=== PATIENT | male | born 1940 | race American Indian/Alaskan Native ===

== ENCOUNTER 2017-04-14 12:30 | Emergency (ER) | payer MEDICARE ==
[2017-04-14 13:31] LABS: Basophils % (Auto) 0.3 % (0.0-1.8); Eosinophils % (Auto) 0.2 % (0.0-4.3); Hematocrit 36.2 % (35.5-45.6); Hemoglobin 11.9 gm/dl (11.8-15.2); Mean Corpuscular HGB Conc 33 % (32-34); Mean Corpuscular Hemoglobin 30 pg (28-32); Mean Corpuscular Volume 92 fl (84-94); Platelet Count 213 K/mm3 (140-440); Red Blood Count 3.93 M/mm3 (3.65-5.03); Red Cell Distribution Width 14.1 % (13.2-15.2); White Blood Count 5.6 K/mm3 (4.5-11.0)
[2017-04-14 13:38] LABS: BUN/Creatinine Ratio 18.88; Blood Urea Nitrogen 17 mg/dL (9-20); Calcium 9.1 mg/dL (8.4-10.2); Carbon Dioxide 30 mmol/L (22-30); Glucose 109 mg/dL (75-100)
[2017-04-14 13:39] LABS: Anion Gap 14 mmol/L; Chloride 96.5 mmol/L (98-107); Potassium 3.8 mmol/L (3.6-5.0); Sodium 137 mmol/L (137-145)
--- NOTE | 2017-04-14 13:52 | XRay Report ---
Portable chest: The patient markedly rotated to the right. The lungs however appear clear the mediastinal contour is grossly normal in size. No vascular congestion identified. No bony lesion. The hyperinflation is apparent on prior study of June 07, 2016 is not as obvious on the current study possibly due to the rotation. Impression: No acute findings. Limited exam.
[2017-04-14] MEDS ORDERED: DUONEB *Not for PRN Use IH ONE (15:17)
[2017-04-14 15:56] LABS: ISTAT Base Excess 6; ISTAT HCO3 31.3; ISTAT PCO2 51.7 (35-45); ISTAT PH 7.389 (7.35-7.45); ISTAT PO2 109 (80-105); ISTAT SO2 98; ISTAT TCO2 33
--- NOTE | 2017-04-14 16:06 | Emergency Department Report ---
HPI - General Chief Complaint: Dyspnea/Respdistress Time Seen by Provider: 04/14/17 13:39 - HPI HPI: This is a 76-year-old Afro-[place] Citizen male presents the emergency department with complaint of 1-2 days of shortness of breath. The patient has a history of COPD and is 2 L oxygen dependent but also says that he does not think that he was getting appropriate oxygen at home from the machine. However he and his family contacted the company providing the oxygen and breathing apparatus supplies and it appears that he needs a new nasal cannula and hose and that it should be arriving later today or tomorrow. He denies any chest pain, back pain , fever, nausea, vomiting or diaphoresis. He is a former smoker. He came in by EMS but did not receive anything other than supplemental oxygen in route. He has a primary care physician through the [facility]. ED Past Medical Hx - Past Medical History Hx COPD: Yes Hx HIV: No Additional medical history: enlarged prostate - Surgical History Additional Surgical History: ulcer surgery - Social History Smoking Status: Former Smoker Substance Use Type: Alcohol - Medications Home Medications: Home Medications Medication Instructions Recorded Confirmed Last Taken Type Fluticasone/Salmeterol [Advair 1 puff IH BID #1 disk.w.dev 05/25/16 06/07/16 Unknown Rx Diskus 100-50 mcg] Aspirin [Aspirin TAB] 325 mg PO QDAY 06/07/16 06/07/16 Unknown History Cyanocobalamin (Vitamin B-12) 1,000 mcg PO DAILY 06/07/16 06/07/16 Unknown History [B-12] Dicyclomine [Bentyl] 20 mg PO QID 06/07/16 06/07/16 Unknown History Finasteride [Proscar] 5 mg PO QDAY 06/07/16 06/07/16 Unknown History Pantoprazole [Protonix] 40 mg PO QDAY 06/07/16 06/07/16 Unknown History Ranitidine HCl [Zantac 150 MG TAB] 150 mg PO DAILY 06/07/16 06/07/16 Unknown History Sertraline [Zoloft] 50 mg PO QDAY 06/07/16 06/07/16 Unknown History amLODIPine [Norvasc] 5 mg PO DAILY 06/07/16 06/07/16 Unknown History ALBUTEROL Inhaler [ProAir HFA 2 puff IH QID PRN #1 inha 04/14/17 Unknown Rx Inhaler] Albuterol Sulfate [Albuterol 0.63% 0.63 mg IH QID PRN #1 box 04/14/17 Unknown Rx NEBS] predniSONE [Deltasone] 20 mg PO QDAY #5 tab 04/14/17 Unknown Rx ED Review of Systems ROS: Stated complaint: SAFE PLACE/IMANI Other details as noted in HPI Comment: All other systems reviewed and negative Constitutional: denies: chills, fever Eyes: denies: eye pain, eye discharge, vision change ENT: denies: ear pain, throat pain Respiratory: shortness of breath, wheezing Cardiovascular: denies: chest pain, edema Gastrointestinal: denies: abdominal pain, nausea, diarrhea Genitourinary: denies: urgency, dysuria Musculoskeletal: denies: back pain, joint swelling, arthralgia Skin: denies: rash, lesions Neurological: denies: headache, weakness, paresthesias Physical Exam - Physical Exam Vital Signs: Vital Signs 04/14/17 04/14/17 04/14/17 12:42 12:51 12:55 Temperature 98.1 F Pulse Rate 96 H Pulse Rate [ Posterior Right ] Respiratory 24 Rate Respiratory Rate [Posterior Right] Blood Pressure 136/78 136/78 Blood Pressure [Left] O2 Sat by Pulse 99 99 97 Oximetry 04/14/17 04/14/17 04/14/17 13:00 13:10 13:11 Temperature Pulse Rate Pulse Rate [ Posterior Right ] Respiratory Rate Respiratory Rate [Posterior Right] Blood Pressure 133/84 133/84 Blood Pressure [Left] O2 Sat by Pulse 99 100 93 Oximetry 04/14/17 04/14/17 04/14/17 13:21 13:31 13:41 Temperature Pulse Rate Pulse Rate [ Posterior Right ] Respiratory Rate Respiratory Rate [Posterior Right] Blood Pressure 133/84 133/84 133/84 Blood Pressure [Left] O2 Sat by Pulse 98 97 83 L Oximetry 04/14/17 04/14/17 04/14/17 13:51 14:00 14:12 Temperature Pulse Rate 92 H Pulse Rate [ Posterior Right ] Respiratory 22 Rate Respiratory Rate [Posterior Right] Blood Pressure 133/84 137/86 Blood Pressure 134/84 [Left] O2 Sat by Pulse 75 L 56 L 100 Oximetry 04/14/17 04/14/17 15:42 15:48 Temperature Pulse Rate Pulse Rate [ 85 88 Posterior Right ] Respiratory Rate Respiratory 18 18 Rate [Posterior Right] Blood Pressure Blood Pressure [Left] O2 Sat by Pulse Oximetry Physical Exam: GENERAL: The patient is well-developed well-nourished. HEENT: Normocephalic. Atraumatic. Extraocular motions are intact. Patient has moist mucous membranes. Pupils equal reactive to light bilaterally. NECK: Supple. Trachea is midline. CHEST/LUNGS: Mild wheezing throughout the chest. There is tachypnea but no accessory muscle use. There is no respiratory distress noted. HEART/CARDIOVASCULAR: Regular. There is no tachycardia. There is no gallop rub or murmur. ABDOMEN: Abdomen is soft, nontender. Patient has normal bowel sounds. There is no abdominal distention. SKIN: Skin is warm and dry. NEURO: The patient is awake, alert, and oriented. The patient is cooperative. The patient has no focal neurologic deficits. The patient has normal speech. MUSCULOSKELETAL: There is no tenderness or deformity. There is no limitation range of motion. There is no evidence of acute injury. ED Course Vital Signs 04/14/17 04/14/17 04/14/17 12:42 12:51 12:55 Temperature 98.1 F Pulse Rate 96 H Pulse Rate [ Posterior Right ] Respiratory 24 Rate Respiratory Rate [Posterior Right] Blood Pressure 136/78 136/78 Blood Pressure [Left] O2 Sat by Pulse 99 99 97 Oximetry 04/14/17 04/14/17 04/14/17 13:00 13:10 13:11 Temperature Pulse Rate Pulse Rate [ Posterior Right ] Respiratory Rate Respiratory Rate [Posterior Right] Blood Pressure 133/84 133/84 Blood Pressure [Left] O2 Sat by Pulse 99 100 93 Oximetry 04/14/17 04/14/17 04/14/17 13:21 13:31 13:41 Temperature Pulse Rate Pulse Rate [ Posterior Right ] Respiratory Rate Respiratory Rate [Posterior Right] Blood Pressure 133/84 133/84 133/84 Blood Pressure [Left] O2 Sat by Pulse 98 97 83 L Oximetry 04/14/17 04/14/17 04/14/17 13:51 14:00 14:12 Temperature Pulse Rate 92 H Pulse Rate [ Posterior Right ] Respiratory 22 Rate Respiratory Rate [Posterior Right] Blood Pressure 133/84 137/86 Blood Pressure 134/84 [Left] O2 Sat by Pulse 75 L 56 L 100 Oximetry 04/14/17 04/14/17 15:42 15:48 Temperature Pulse Rate Pulse Rate [ 85 88 Posterior Right ] Respiratory Rate Respiratory 18 18 Rate [Posterior Right] Blood Pressure Blood Pressure [Left] O2 Sat by Pulse Oximetry - ABG Interpretation Ph: [phone] PCO2: 51 PO2: 109 Bicarbonate: 31 Interpretation: respiratory acidosis, metabolic alkalosis ED Medical Decision Making - Lab Data Result diagrams: 04/14/17 13:05 04/14/17 13:05 - EKG Data -: EKG Interpreted by Me EKG shows normal: sinus rhythm, axis (left axis deviation), intervals, QRS complexes, ST-T waves (nonspecific T-wave) Rate: normal - EKG Data When compared to previous EKG there are: previous EKG unavailable Interpretation: other (sinus rhythm with PACs, left axis deviation, nonspecific T waves) - Radiology Data Radiology results: image reviewed interpreted by me: Chest x-ray shows hyperinflation of lungs and some flattening of the diaphragms consistent with COPD/emphysema. No obvious pneumonia. No pleural effusion. No pneumothorax. - Medical Decision Making This is a 76-year-old male presents to the emergency department with a complaint of some shortness of breath with history of COPD. In the end it appears as if the patient was trying to use a very large tubing, greater than 50 feet, to get his supplemental oxygen via nasal cannula and I believe this could be the reason that the patient did not feels that he was getting appropriate amount of oxygen. However he is getting new tubing from the company today. In the emergency department he was evaluated with physical exam , labs, imaging EKG. EKG did not show any signs of ST elevation [place], ischemia or dysrhythmia. Chest x-rays consistent with COPD/emphysema but no acute process seen. Labs are mostly unremarkable. ABG shows some mild hypercapnia but a PCO2 of 50 and this chronic COPD patient is not significant and there is no hypoxia or acidosis. The patient has never appeared in any respiratory distress but did have some bronchospasm. After receiving Solu-Medrol and DuoNeb to the breathing is improved in the wheezing is almost resolved. Patient says he is feeling a lot better and asking for discharge home. He will go home with a 5 day course of steroids, a refill of his albuterol inhaler and nebulized treatments and he will be given the short tubing to go to the supplemental oxygen until he gets the replacement from his company. He has been encouraged to return to the emergency department with any worsening of symptoms or any acute distress. - Differential Diagnosis COPD, asthma, pneumonia, PE Critical Care Time: No Critical care attestation.: If time is entered above; I have spent that time in minutes in the direct care of this critically ill patient, excluding procedure time. ED Disposition Clinical Impression: COPD exacerbation Disposition: TO HOME OR SELFCARE Is pt being admited?: No Condition: Stable Instructions: Chronic Obstructive Pulmonary Disease (ED) Additional Instructions: Is follow-up with your primary care doctor in the next few days. Return to the emergency department with any worsening of your symptoms or any acute distress. Prescriptions: ALBUTEROL Inhaler [ProAir HFA Inhaler] 2 puff IH QID PRN #1 inha PRN Reason: Shortness Of Breath Albuterol Sulfate [Albuterol 0.63% NEBS] 0.63 mg IH QID PRN #1 box PRN Reason: Shortness Of Breath predniSONE [Deltasone] 20 mg PO QDAY #5 tab Referrals: PRIMARY CARE, [Primary Care Provider] - TARA Time of Disposition: 16:18
[2017-04-14 16:19] VITALS: BP 157/124
== END 2017-04-14 16:33 | disposition home or self-care (01) ==
LOC: ED 12:30
DX: J44.1 Chronic obstructive pulmonary disease with (acute) exacerbation (principal); Z87.891 Personal history of nicotine dependence; Z79.82 Long term (current) use of aspirin
CPT/HCPCS: 36415; 71010; 80048; 82803; 84484; 85025; 85379; 93005; 93010; 94640; 96374; 99284; J2930

== ENCOUNTER 2019-05-09 11:23 | Emergency (ER) | payer MEDICARE ==
--- NOTE | 2019-05-09 11:43 | Emergency Department Report ---
Blank Doc - Documentation Documentation: This is a 78-year-old male that presents with nose and lip swelling with purul ent drainage. This initial assessment/diagnostic orders/clinical plan/treatment(s) is/are subject to change based on patient's health status, clinical progression and re- assessment by fellow clinical providers in the ED. Further treatment and workup at subsequent clinical providers discretion. Patient/guardians urged not to elope from the ED as their condition may be serious if not clinically assessed and managed. Initial orders include: 1- Patient sent to [facility] for further evaluation and treatment 2- labs
[2019-05-09 12:26] LABS: Basophils % (Auto) 0.1 % (0.0-1.8); Hematocrit 31.6 % (35.5-45.6); Hemoglobin 10.7 gm/dl (11.8-15.2); Lymphocytes # (Auto) 0.7 K/mm3 (1.2-5.4); Lymphocytes % (Auto) 7.5 % (13.4-35.0); Mean Corpuscular HGB Conc 34 % (32-34); Mean Corpuscular Volume 90 fl (84-94); Monocytes # (Auto) 1.4 K/mm3 (0.0-0.8); Monocytes % (Auto) 14.1 % (0.0-7.3); Platelet Count 304 K/mm3 (140-440); Red Blood Count 3.51 M/mm3 (3.65-5.03)
[2019-05-09 13:32] LABS: Alanine Aminotransferase 17 units/L (7-56); Albumin 3.3 g/dL (3.9-5); BUN/Creatinine Ratio 16; Blood Urea Nitrogen 18 mg/dL (9-20); Calcium 9.8 mg/dL (8.4-10.2); Hemolysis Index 14
[2019-05-09] MEDS ORDERED: NACL 0.9% IR ONE (14:48)
[2019-05-09] MEDS ORDERED: XYLOCAINE 1%/ EPI 1:100,000 INFILTRATI NR (15:00)
[2019-05-09] MEDS ORDERED: CLEOCIN 600 MG/50 mL 600 MG/50 ML BAG IV ONE (15:36)
--- NOTE | 2019-05-09 17:43 | Emergency Department Report ---
ED General Adult HPI - General Chief complaint: Dental/Oral Stated complaint: SWOLLEN LIP/PAIN Time Seen by Provider: 05/09/19 11:40 Source: patient, family Mode of arrival: Wheelchair Limitations: No Limitations - History of Present Illness Initial comments: 8-year-old man with COPD on home O2. He has had progressive swelling of his upper lip. He reports drainage this is purulent). He is edentulous of his upper (maxillary dentition). He reports no shortness of breath no fever no chills. Swelling has been going on for at least a week. -: Gradual, week(s) Location: face Associated Symptoms: denies other symptoms - Related Data Home Medications Medication Instructions Recorded Confirmed Last Taken Aspirin [Aspirin TAB] 325 mg PO QDAY 06/07/16 06/07/16 Unknown Cyanocobalamin (Vitamin B-12) 1,000 mcg PO DAILY 06/07/16 06/07/16 Unknown [B-12] Dicyclomine [Bentyl] 20 mg PO QID 06/07/16 06/07/16 Unknown Finasteride [Proscar] 5 mg PO QDAY 06/07/16 06/07/16 Unknown Pantoprazole [Protonix] 40 mg PO QDAY 06/07/16 06/07/16 Unknown Sertraline [Zoloft] 50 mg PO QDAY 06/07/16 06/07/16 Unknown amLODIPine [Norvasc] 5 mg PO DAILY 06/07/16 06/07/16 Unknown raNITIdine HCl [Zantac 150 MG TAB] 150 mg PO DAILY 06/07/16 06/07/16 Unknown Previous Rx's Medication Instructions Recorded Last Taken Type Fluticasone/Salmeterol [Advair 1 puff IH BID #1 disk.w.dev 05/25/16 Unknown Rx Diskus 100-50 mcg] ALBUTEROL Inhaler (OR & NICU) 2 puff IH QID PRN #1 inha 04/14/17 Unknown Rx [ProAir HFA Inhaler] Albuterol Sulfate [Albuterol 0.63% 0.63 mg IH QID PRN #1 box 04/14/17 Unknown Rx NEBS] predniSONE [Deltasone] 20 mg PO QDAY #5 tab 04/14/17 Unknown Rx Clindamycin [Clindamycin CAP] 300 mg PO Q8H #30 cap 05/09/19 Unknown Rx Allergies Allergy/AdvReac Type Severity Reaction Status Date / Time No Known Allergies Allergy Verified 04/14/17 12:54 ED Review of Systems ROS: Stated complaint: SWOLLEN LIP/PAIN Other details as noted in HPI Constitutional: denies: chills, fever Eyes: denies: eye pain, eye discharge, vision change ENT: as per HPI. denies: ear pain, throat pain Respiratory: shortness of breath (chronically no acute change). denies: cough, wheezing Cardiovascular: denies: chest pain, palpitations Endocrine: no symptoms reported Gastrointestinal: denies: abdominal pain, nausea, diarrhea Genitourinary: denies: urgency, dysuria Musculoskeletal: denies: back pain, joint swelling, arthralgia Skin: denies: rash, lesions Neurological: denies: headache, weakness, paresthesias Psychiatric: denies: anxiety, depression Hematological/Lymphatic: denies: easy bleeding, easy bruising ED Past Medical Hx - Past Medical History Previous Medical History?: Yes Hx COPD: Yes Hx HIV: No Additional medical history: enlarged prostate - Surgical History Past Surgical History?: Yes Additional Surgical History: ulcer surgery - Social History Smoking Status: Former Smoker Substance Use Type: Alcohol - Medications Home Medications: Home Medications Medication Instructions Recorded Confirmed Last Taken Type Fluticasone/Salmeterol [Advair 1 puff IH BID #1 disk.w.dev 05/25/16 06/07/16 Unknown Rx Diskus 100-50 mcg] Aspirin [Aspirin TAB] 325 mg PO QDAY 06/07/16 06/07/16 Unknown History Cyanocobalamin (Vitamin B-12) 1,000 mcg PO DAILY 06/07/16 06/07/16 Unknown History [B-12] Dicyclomine [Bentyl] 20 mg PO QID 06/07/16 06/07/16 Unknown History Finasteride [Proscar] 5 mg PO QDAY 06/07/16 06/07/16 Unknown History Pantoprazole [Protonix] 40 mg PO QDAY 06/07/16 06/07/16 Unknown History Sertraline [Zoloft] 50 mg PO QDAY 06/07/16 06/07/16 Unknown History amLODIPine [Norvasc] 5 mg PO DAILY 06/07/16 06/07/16 Unknown History raNITIdine HCl [Zantac 150 MG TAB] 150 mg PO DAILY 06/07/16 06/07/16 Unknown History ALBUTEROL Inhaler (OR & NICU) 2 puff IH QID PRN #1 inha 04/14/17 Unknown Rx [ProAir HFA Inhaler] Albuterol Sulfate [Albuterol 0.63% 0.63 mg IH QID PRN #1 box 04/14/17 Unknown Rx NEBS] predniSONE [Deltasone] 20 mg PO QDAY #5 tab 04/14/17 Unknown Rx Clindamycin [Clindamycin CAP] 300 mg PO Q8H #30 cap 05/09/19 Unknown Rx ED Physical Exam - General Limitations: No Limitations General appearance: alert, in no apparent distress, cachectic - Head Head exam: Present: atraumatic, normocephalic - Eye Eye exam: Present: normal appearance. Absent: scleral icterus - ENT ENT exam: Present: mucous membranes moist, other (the upper lip is swollen. There is purulent drainage. The mucosal area of the lip also has a tract with apparent purulent drainage. There is no gingival infection evident.) - Neck Neck exam: Present: normal inspection. Absent: tenderness, meningismus - Respiratory Respiratory exam: Present: normal lung sounds bilaterally. Absent: respiratory distress - Cardiovascular Cardiovascular Exam: Present: regular rate, normal rhythm. Absent: systolic murmur, diastolic murmur, rubs, gallop - GI/Abdominal GI/Abdominal exam: Present: soft, normal bowel sounds. Absent: distended, tenderness, guarding - Rectal Rectal exam: Present: deferred - Extremities Exam Extremities exam: Present: normal inspection - Back Exam Back exam: Present: normal inspection - Neurological Exam Neurological exam: Present: alert, oriented X3 - Psychiatric Psychiatric exam: Present: normal affect, normal mood - Skin Skin exam: Present: warm, dry, intact, normal color. Absent: rash ED Course Vital Signs 05/09/19 05/09/19 11:41 12:07 Temperature 98.7 F 98.6 F Pulse Rate 117 H 94 H Respiratory 20 20 Rate Blood Pressure 130/76 Blood Pressure 130/75 [Left] O2 Sat by Pulse 96 100 Oximetry - Reevaluation(s) Reevaluation #1: Patient was given IV clindamycin. His infection appeared to be anaerobic in nature. A culture was sent. He will be sent home on clindamycin. The packing can be removed in a day or 2. He will probably just fall out with the dressing change. 05/09/19 17:43 - I & D Upper Face Type of Procedure: Complex Blade Size: 11 I & D Procedure: betadine prep Progress: The purulent tract was incised both in the scan and the mucosal area. The packing could be placed after drainage with a Yankauer suction catheter in the skin but the mucosal part of the abscess did not hold a gauze dressing. 2 abscesses did not appear to communicate. Procedure was happily tolerated after lidocaine 1% with epi local anesthesia. ED Medical Decision Making - Lab Data Result diagrams: 05/09/19 11:59 05/09/19 11:59 Laboratory Results - last 24 hr 05/09/19 05/09/19 05/09/19 11:59 11:59 11:59 WBC 9.8 RBC 3.51 L Hgb 10.7 L Hct 31.6 L MCV 90 MCH 31 MCHC 34 RDW 14.0 Plt Count 304 Lymph % (Auto) 7.5 L Crisp % (Auto) 14.1 H Eos % (Auto) 0.0 Baso % (Auto) 0.1 Lymph # 0.7 L Crisp # 1.4 H Eos # 0.0 Baso # 0.0 Seg Neutrophils % 78.3 H Seg Neutrophils # 7.6 Sodium 136 L Potassium 4.1 Chloride 94.4 L Carbon Dioxide 28 Anion Gap 18 BUN 18 Creatinine 1.1 Estimated GFR > 60 BUN/Creatinine Ratio 16 Glucose 56 L Lactic Acid 2.00 Calcium 9.8 Total Bilirubin 0.20 AST 20 ALT 17 Alkaline Phosphatase 64 Total Protein 7.4 Albumin 3.3 L Albumin/Globulin Ratio 0.8 Critical care attestation.: If time is entered above; I have spent that time in minutes in the direct care of this critically ill patient, excluding procedure time. ED Disposition Clinical Impression: Lip abscess Disposition: DC-01 TO HOME OR SELFCARE Is pt being admited?: No Does the pt Need Aspirin: No Condition: Stable Instructions: Abscess (ED) Additional Instructions: Change dressing daily. The packing will likely fall out on its own. It should be rechecked by a physician within the next 2 days. You can return here if necessary. The patient has any fever or chills or increased swelling or redness or does not feel well he should return to the emergency department for reevaluation. I also gave him the name of an ear nose and throat doctor that should be of assistance in follow-up. Prescriptions: Clindamycin [Clindamycin CAP] 300 mg PO Q8H #30 cap Referrals: BRIAN CHOE PA [Primary Care Provider] - 2-3 Days MOY DODSON MD [Staff Physician] - 2-3 Days Time of Disposition: 17:46
[2019-05-09 18:33] VITALS: BP 157/88
== END 2019-05-09 18:36 | disposition home or self-care (01) ==
LOC: ED 11:23
DX: K13.0 Diseases of lips (principal); J44.9 Chronic obstructive pulmonary disease, unspecified; Z87.891 Personal history of nicotine dependence; Z79.899 Other long term (current) drug therapy
CPT/HCPCS: 36415; 80053; 82140; 85025; 96365

== ENCOUNTER 2019-05-11 00:44 | Inpatient (IN) | payer MEDICARE ==
[2019-05-11] MEDS ORDERED: NACL 0.9% 500 ML 500 ML IV ONE (01:06)
--- NOTE | 2019-05-11 01:06 | Emergency Department Report ---
ED General Adult HPI - General Chief complaint: Weakness Stated complaint: CAN'T TALK REACTION TO MEDS Time Seen by Provider: 05/11/19 00:53 Source: patient, family, RN notes reviewed, old records reviewed Mode of arrival: Wheelchair Limitations: Altered Mental Status, Physical Limitation - History of Present Illness Initial comments: This is a 78-year-old gentleman. The patient typically follows at the [facility]. He has a history of COPD. Patient was recently seen here for upper lip abscess, status post incision and drainage, and was discharged on clindamycin. Patient is brought to the hospital by daughter for worsening in condition. Patient has not been eating or drinking as much as he typically does, also has been cough coughing, and "rattling", and at approximately 8:00 PM last night, stops speaking. Daughter reports a gradual decline in functional status over the past 24-36 hours. No fevers, positive weakness, positive cough, questionable nausea. Patient called as a code stroke initially in triage for not speaking. In the emergency room, the patient was altered, followed some commands, and was not able to describe exacerbating or relieving factors. His daughter indicates that his symptoms are constant, and they appear to be getting worse. -: days(s) Location: mouth Radiation: other Quality: other Consistency: other Improves with: other Worsens with: other - Related Data Home Medications Medication Instructions Recorded Confirmed Last Taken Aspirin [Aspirin TAB] 325 mg PO QDAY 06/07/16 05/11/19 05/09/19 325 mg Finasteride [Proscar] 5 mg PO QDAY 06/07/16 05/11/19 05/09/19 5 mg amLODIPine [Norvasc] 5 mg PO DAILY 06/07/16 05/11/19 05/09/19 5 mg raNITIdine HCl [Zantac 150 MG TAB] 150 mg PO BID 06/07/16 05/11/19 05/09/19 150 mg Adults Multivitamin Tablet 1 tab PO DAILY 05/11/19 05/11/19 05/09/19 1 tablet Aspirin EC 325 mg PO QDAY 05/11/19 05/11/19 05/09/19 325 mg Cholecalciferol (Vitamin D3) 1,000 units PO DAILY 05/11/19 05/11/19 05/09/19 1000 units Docusate Sodium [Colace CAP] 100 mg PO BID 05/11/19 05/11/19 05/09/19 100 mg Pantoprazole [Protonix] 40 mg PO TID 05/11/19 05/11/19 05/09/19 40 mg Sennosides Tab [Senokot] 8.6 mg PO BID PRN 05/11/19 05/11/19 05/09/19 8.6 mg Simvastatin 20 mg PO HS 05/11/19 05/11/19 05/09/19 20 mg Tamsulosin [Flomax] 2 cap PO DAILY 05/11/19 05/11/19 05/09/19 20 mg Tiotropium [place] [Spiriva 2.5 inh PO DAILY 05/11/19 05/11/19 05/09/19 Respimat] 2.5 MCG Allergies Allergy/AdvReac Type Severity Reaction Status Date / Time No Known Allergies Allergy Verified 04/14/17 12:54 ED Review of Systems ROS: Stated complaint: CAN'T TALK REACTION TO MEDS Other details as noted in HPI Comment: Unobtainable due to pts medical conditions (ros per family) Constitutional: malaise, weakness Respiratory: cough Gastrointestinal: denies: vomiting Neurological: weakness, confusion ED Past Medical Hx - Past Medical History Previous Medical History?: Yes Hx COPD: Yes Hx HIV: No Additional medical history: enlarged prostate - Surgical History Past Surgical History?: Yes Additional Surgical History: ulcer surgery - Social History Smoking Status: Former Smoker Substance Use Type: Alcohol - Medications Home Medications: Home Medications Medication Instructions Recorded Confirmed Last Taken Type Aspirin [Aspirin TAB] 325 mg PO QDAY 06/07/16 05/11/19 05/09/19 History 325 mg Finasteride [Proscar] 5 mg PO QDAY 06/07/16 05/11/19 05/09/19 History 5 mg amLODIPine [Norvasc] 5 mg PO DAILY 06/07/16 05/11/19 05/09/19 History 5 mg raNITIdine HCl [Zantac 150 MG TAB] 150 mg PO BID 06/07/16 05/11/19 05/09/19 History 150 mg Adults Multivitamin Tablet 1 tab PO DAILY 05/11/19 05/11/19 05/09/19 History 1 tablet Aspirin EC 325 mg PO QDAY 05/11/19 05/11/19 05/09/19 History 325 mg Cholecalciferol (Vitamin D3) 1,000 units PO DAILY 05/11/19 05/11/19 05/09/19 History 1000 units Docusate Sodium [Colace CAP] 100 mg PO BID 05/11/19 05/11/19 05/09/19 History 100 mg Pantoprazole [Protonix] 40 mg PO TID 05/11/19 05/11/19 05/09/19 History 40 mg Sennosides Tab [Senokot] 8.6 mg PO BID PRN 05/11/19 05/11/19 05/09/19 History 8.6 mg Simvastatin 20 mg PO HS 05/11/19 05/11/19 05/09/19 History 20 mg Tamsulosin [Flomax] 2 cap PO DAILY 05/11/19 05/11/19 05/09/19 History 20 mg Tiotropium [place] [Spiriva 2.5 inh PO DAILY 05/11/19 05/11/19 05/09/19 History Respimat] 2.5 MCG ED Physical Exam - General Limitations: Altered Mental Status General appearance: lethargic - Head Head exam: Present: atraumatic, normocephalic - Eye Eye exam: Present: normal appearance, EOMI - ENT ENT exam: Present: mucous membranes dry, normal external ear exam, other (dry mucous membranes. Indurated superior lip is noted. There is no stridor. There is no elevation of the base of the tongue.) - Neck Neck exam: Present: normal inspection, full ROM. Absent: tenderness, meningismus - Respiratory Respiratory exam: Present: decreased breath sounds. Absent: respiratory distress - Cardiovascular Cardiovascular Exam: Present: regular rate, normal rhythm, normal heart sounds. Absent: bradycardia, tachycardia, irregular rhythm, systolic murmur, diastolic murmur, rubs, gallop - GI/Abdominal GI/Abdominal exam: Present: soft. Absent: distended, tenderness, guarding, rebound, rigid, pulsatile mass - Rectal Rectal exam: Present: normal inspection - exam: Present: normal inspection External exam: Present: normal external exam - Extremities Exam Extremities exam: Present: normal inspection, other (2+ pulses noted in the bilateral upper, lower extremities. Compartments soft. No long bony tenderness. The pelvis is stable.). Absent: tenderness, calf tenderness - Back Exam Back exam: Present: normal inspection. Absent: tenderness, CVA tenderness (R), CVA tenderness (L), paraspinal tenderness, vertebral tenderness - Neurological Exam Neurological exam: Present: altered, other (4 and a 5 strength bilateral upper extremities. 3 out of 5 strength bilateral lower extremities. Sensation intact to light touch for families. No obvious facial droop. Follows commands. Patient's slow to respond.) - Psychiatric Psychiatric exam: Present: flat affect - Skin Skin exam: Present: warm, other (indurated superior lip) ED Course Vital Signs 05/11/19 05/11/19 05/11/19 01:05 01:06 01:15 Temperature Pulse Rate Respiratory 18 Rate Blood Pressure 117/84 O2 Sat by Pulse 95 90 83 L Oximetry 05/11/19 05/11/19 05/11/19 01:30 01:45 02:00 Temperature 99.3 F Pulse Rate 103 H 97 H 95 H Respiratory 20 21 15 Rate Blood Pressure 125/92 132/96 135/79 O2 Sat by Pulse 80 L 96 100 Oximetry 05/11/19 05/11/19 05/11/19 03:02 03:16 03:30 Temperature Pulse Rate 109 H Respiratory 21 Rate Blood Pressure 129/79 131/83 131/83 O2 Sat by Pulse 95 90 100 Oximetry 05/11/19 05/11/19 05/11/19 04:00 04:30 05:00 Temperature Pulse Rate 104 H 103 H Respiratory 14 11 L Rate Blood Pressure 135/79 118/85 102/64 O2 Sat by Pulse 100 100 100 Oximetry 05/11/19 05/11/19 05:30 06:00 Temperature Pulse Rate 90 102 H Respiratory 13 15 Rate Blood Pressure 109/66 123/69 O2 Sat by Pulse 100 100 Oximetry - Reevaluation(s) Reevaluation #1: 05/11/19 01:55 Differential diagnosis, including not limited to: Stroke, subacute stroke, pneumonia, urinary tract infection, bacteremia, viremia, encephalitis, meningitis Assessment and plan: 78-year-old gentleman, here with worsening weakness, decline in functional status, has known history of upper lip abscess, currently on clindamycin. Not a TPA candidate as he presents more than 4.5 hours after his last known well time, and his history and physical are more suggestive of toxic/metabolic/infectious encephalopathy rather than acute ischemic stroke. He is seen in consultation was stroke neurology, Dr. Levar Strickland, who agrees that patient is not a TPA candidate, and also agrees with CT angiogram of the head and neck, as well as spinal tap. Patient will be placed in isolation precautions, he'll be covered empirically for community-acquired meningitis, encephalitis. He is not able to provide informed consent for spinal tap, therefore, discussed with his daughter, who has provided written and oral consent for spinal tap. Plan to admit once initial data points have resulted. Reevaluation #2: 05/11/19 04:54 Lumbar puncture not consistent with meningitis. Isolation precautions have been discontinued. CT angiogram head and neck not consistent with large vessel occlusion. Emphysematous changes noted. Also found to be hypothyroid, likely subclinical hypothyroidism. Intravenous Synthroid ordered. Mental status now much improved, patient is speaking, and stating that he is cold. Discussed laboratory and CT scan findings with patients daughter, who verbalizes understanding. Patient admitted to the hospital under the service of Dr. Bunny Prater 05/11/19 04:57 - Lumbar Puncture Consent Obtained: verbal consent, written consent, emergent situation Time Out Performed: Yes Indication for Procedure: change in mental status Patient Position: Sitting Upright/Leaning F Skin Prep: Povidone-Iodine 1% Local Anesthetic Used: Lidocaine 2% Amount of anesthesia used (mls): 8 Spinal Needle Gauge: 20G Spinal Needle Length: 3.5in Interspace Used: L4-L5 Fluid Initially Obtained: clear Complications: none Patient Tolerated Procedure: well ED Medical Decision Making - Lab Data Result diagrams: 05/13/19 05:39 05/13/19 05:39 Vital Signs 05/11/19 01:45 Temperature 99.3 F Pulse Rate 96 H Respiratory 18 Rate Blood Pressure 132/96 O2 Sat by Pulse 100 Oximetry Lab Results 05/11/19 Range/Units 01:00 POC Glucose 122 H (70-105) - EKG Data -: EKG Interpreted by Ok EKG shows normal: sinus rhythm Rate: normal - EKG Data 05/11/19 01:56 Normal sinus, 93 beats for minute, normal axis, QTC 441 ms, poor R-wave progression, abnormal EKG, the EKG is not consistent with ST elevation myocardial infarction, nonspecific changes noted with compared to prior EKG from 2016. EKG is not consistent with ST elevation myocardial infarction. - Radiology Data Radiology results: pending, report reviewed, image reviewed Critical Care Time: Yes Critical care time in (mins) excluding proc time.: 35 Critical care attestation.: If time is entered above; I have spent that time in minutes in the direct care of this critically ill patient, excluding procedure time. ED Disposition Clinical Impression: Acute encephalopathy, SIRS (systemic inflammatory response syndrome) Disposition: OP ADMIT IP TO THIS HOSP Is pt being admited?: Yes Does the pt Need Aspirin: No (aspirin held given spinal tap) Condition: Fair
--- NOTE | 2019-05-11 01:07 | Consultation ---
History of Present Illness Consult date: 05/11/19 Medications and Allergies Allergies Allergy/AdvReac Type Severity Reaction Status Date / Time No Known Allergies Allergy Verified 04/14/17 12:54 Home Medications Medication Instructions Recorded Confirmed Last Taken Type Fluticasone/Salmeterol [Advair 1 puff IH BID #1 disk.w.dev 05/25/16 06/07/16 Unknown Rx Diskus 100-50 mcg] Aspirin [Aspirin TAB] 325 mg PO QDAY 06/07/16 06/07/16 Unknown History Cyanocobalamin (Vitamin B-12) 1,000 mcg PO DAILY 06/07/16 06/07/16 Unknown History [B-12] Dicyclomine [Bentyl] 20 mg PO QID 06/07/16 06/07/16 Unknown History Finasteride [Proscar] 5 mg PO QDAY 06/07/16 06/07/16 Unknown History Pantoprazole [Protonix] 40 mg PO QDAY 06/07/16 06/07/16 Unknown History Sertraline [Zoloft] 50 mg PO QDAY 06/07/16 06/07/16 Unknown History amLODIPine [Norvasc] 5 mg PO DAILY 06/07/16 06/07/16 Unknown History raNITIdine HCl [Zantac 150 MG TAB] 150 mg PO DAILY 06/07/16 06/07/16 Unknown History ALBUTEROL Inhaler (OR & NICU) 2 puff IH QID PRN #1 inha 04/14/17 Unknown Rx [ProAir HFA Inhaler] Albuterol Sulfate [Albuterol 0.63% 0.63 mg IH QID PRN #1 box 04/14/17 Unknown Rx NEBS] predniSONE [Deltasone] 20 mg PO QDAY #5 tab 04/14/17 Unknown Rx Clindamycin [Clindamycin CAP] 300 mg PO Q8H #30 cap 05/09/19 Unknown Rx - Assessment Assessment Interval: Baseline - Level of Consciousness 1a. Level of Consciousness: resp stimuli/obtunded - LOC Questions 1b. LOC Questions: answers no questions correctly - LOC Command 1c. LOC Commands: performs no tasks correctly - Best Gaze 2. Best Gaze: normal - Visual 3. Visual: no visual loss - Facial Palsy 4. Facial Palsy: normal symmetrical movement - Motor Arm 5a. Motor Arm Left: no drift 5b. Motor Arm Right: no drift - Motor Leg 6a. Motor Leg Left: no gravity effort 6b. Motor Leg Right: no gravity effort - Limb Ataxia 7. Limb Ataxia: absent - Sensory 8. Sensory: normal - Best Language 9. Best Language: mute/global aphasia - Dysarthria 10. Dysarthria: mute/anarrthric - Extinction and Inattention 11. Extinction/Inattention: no abnormality - Scoring Total Score: 17 Stroke Severity: Moderate to Severe Stroke Results - Laboratory Findings Abnormal Lab Findings: Abnormal Labs 05/11/19 01:00 POC Glucose 122 H Assessment and Plan Date of Service 05/11/2019 [employer] Consult Services Comments: Last time known well: _ 05/09/19 Door time: _00:44 [employer] contacted: _00:57 [employer] at bedside: _01:00 NIHSS assessment time: _6 consult end time: _01:20 Impression: obtundation (etiology is unclear but infection is a possibility) exam appears to be nonfocal and likely deficits inflated on NIHSS due to obtundation, encephalitis is a concern But he does meet criteria for Large Vessel Occlusion screening (CTA head and neck and CTP brain if available) Differential Diagnosis: 1. Cardioembolic stroke 2. Small vessel disease/ lacune 3. Thromboembolic, ymeuvt-nu-evujuz mechanism 4. Hypercoagulable state-related infarct 5. Transient ischemic attack 6. Thrombotic mechanism, large artery disease ---- ------- tPA decision and other recommendations: _ Patient is not a tPA candidate Head CT did not show any acute hemorrhage. reviewed report (if available) and images Reason: _ last time known well>4.5 hours, exam is nonfocal and deficits likely due to obtundation Based on the results of CTA head and neck and (if needed) CTP brain, will determine presence of Large Vessel Occlusion and eligibility for mechanical thrombectomy. Recommendations dysphagia screen ASA if no contraindications head of bed flat IV fluids NS Consider LP, Please check CSF for: Cell count with diff, protein, glucose, gram stain, culture, HSV PCR, save sample for additional testing. Toxic metabolic work up per primary team Stroke work up with: noncontrast brain MRI, 2D ECHO, lipid panel, HbA1c (Goal LDL<70, HbA1c<7) inpatient neurology consultation Inpatient stroke evaluation as per Neurology/ Internal Medicine Discussed with ED physician/medical staff Please contact [employer] Navigator to reach me if further questions/concerns arise. Reason for Stroke Alert and History of Present Illness: _ Patient is a(n) 78 years old male, with history of hypertension, recent frenulum abscess, COPD, BPH, hypertension last known well: 2 days ago Has been having increasing lethargy and difficulty in speech. Review of Systems: Constitutional: Negative except as documented in history of present illness. Eye: Negative except as documented in history of present illness. Ear/Nose/Mouth/Throat: Negative except as documented in history of present illness. Respiratory: Negative except as documented in history of present illness. Cardiovascular: Negative except as documented in history of present illness. Gastrointestinal: Negative except as documented in history of present illness. Musculoskeletal: Negative except as documented in history of present illness. Neurologic: Negative except as documented in history of present illness. Examination: NIHSS Details documented in the note ___ 17 Likely inflated due to obtundation Medical Decision Making: - Extensive number of diagnosis or management options are considered above. - Extensive amount of complex data reviewed. - High risk of complication and/or morbidity or mortality are associated with differential diagnostic considerations above. - There may be Uncertain outcome and increased probability of prolonged f unctional impairment or high probability of severe prolonged functional impairment associated with some of these differential diagnoses. Medical Data Reviewed: 1.Data reviewed include clinical labs, radiology, Medical Tests; 2.Tests results discussed w/performing or interpreting physician; 3.Obtaining/reviewing old medical records; 4.Obtaining case history from another source; 5.Independent review of image, tracing or specimen. When possible Patient/family were informed the Neurology Consult would happen via TeleHealth consult by way of interactive audio and video telecommunications and consented to receiving care in this manner. Case discussed with the Medical staff. Critical Care notation: I was called to see this critical patient emergently. I personally evaluated this critical patient for acute stroke evaluation and determining their eligibility for IV Alteplase and interventional therapies. I have spent approximately _20_ minutes with the patient, including time at bedside, time discussing the case with other physicians, reviewing plan of care, and time independently reviewing the records and scans.
[2019-05-11] MEDS ORDERED: VANCOMYCIN 1,000 MG in NACL 0.9% 500 ML 500 ML IV ONE (01:33)
[2019-05-11] MEDS ORDERED: DECADRON IV ONE (01:33)
[2019-05-11] MEDS ORDERED: XYLOCAINE 2%/ EPI 1:200,000 INFILTRATI ONE (01:33)
[2019-05-11] MEDS ORDERED: ZOVIRAX 800 MG in NACL 0.9% 100 ML IV STA (01:33)
[2019-05-11] MEDS ORDERED: ROCEPHIN 2,000 MG in NACL 0.9% 50 ML IV STA (01:33)
--- NOTE | 2019-05-11 01:37 | Cat Scan Report ---
CT head/brain wo con INDICATION / CLINICAL INFORMATION: MAIN: neuro deficits <6hrs or sx present upon awakening TECH NOTE: WEAKNESS CODE STROKE [phone] 4. TECHNIQUE: All CT scans at this location are performed using CT dose reduction for ALARA by means of automated e xposure control. COMPARISON: None available. FINDINGS: There is mild generalized cerebral atrophy. There is moderate patchy low density throughout the periv entricular white matter and basal ganglia. No focal lesion or mass effect is seen. There is no eviden ce of intracranial hemorrhage or major vessel occlusion. There is complete opacification of the right maxillary antrum with thickening of the wall of the maxi llary sinus. The other paranasal sinuses are clear. IMPRESSION: 1. Moderately extensive small vessel ischemic changes without acute abnormality. 2. Chronic right maxillary sinusitis. This code stroke report was communicated to BRIONNA Mclean in the emergency room at the time of service, 12 :30 AM. Signer Name: Jeanmarie Armenta MD Signed: 05/11/2019 1:32 AM Workstation Name: [id number]
[2019-05-11] MEDS ORDERED: NACL 0.9% 1000 ML 1,000 ML IV ONE (01:51)
--- NOTE | 2019-05-11 01:54 | XRay Report ---
CHEST 1 VIEW 1:32 AM INDICATION / CLINICAL INFORMATION: Neurologic deficit. COMPARISON: 04/14/2017. FINDINGS: SUPPORT DEVICES: None. HEART / MEDIASTINUM: The heart size and pulmonary vasculature are normal. There is mild aortic tortuo sity without aneurysm. LUNGS / PLEURA: The lungs are hyperinflated but clear. No pneumothorax. ADDITIONAL FINDINGS: No significant additional findings. IMPRESSION: Emphysema without acute abnormality. Signer Name: Jeanmarie Armenta MD Signed: 05/11/2019 1:50 AM Workstation Name: [id number]
[2019-05-11 01:57] LABS: Basophils % (Auto) 0.1 % (0.0-1.8); Hematocrit 32.1 % (35.5-45.6); Hemoglobin 10.5 gm/dl (11.8-15.2); Lymphocytes # (Auto) 0.9 K/mm3 (1.2-5.4); Lymphocytes % (Auto) 5.1 % (13.4-35.0); Mean Corpuscular HGB Conc 33 % (32-34); Mean Corpuscular Volume 91 fl (84-94); Monocytes # (Auto) 2.2 K/mm3 (0.0-0.8); Monocytes % (Auto) 12.3 % (0.0-7.3); Platelet Count 333 K/mm3 (140-440); Red Blood Count 3.52 M/mm3 (3.65-5.03); Red Cell Distribution Width 13.7 % (13.2-15.2)
[2019-05-11] MEDS ORDERED: ROCEPHIN/NS 2 GM/100 ML 2 GM/100 ML BAG IV SCH (02:00)
[2019-05-11 02:03] LABS: Bilirubin,Urine NEG (Negative); Blood,Urine NEG (Negative); Color,Urine Yellow (Yellow); Mucus,Urine FEW /HPF; Protein,Urine <15 mg/dL mg/dL (Negative); RBC,Urine < 1.0 /HPF (0.0-6.0); Urobilinogen,Urine < 2.0 mg/dL (<2.0)
[2019-05-11 02:06] LABS: BUN/Creatinine Ratio 18; Blood Urea Nitrogen 23 mg/dL (9-20); Calcium 9.3 mg/dL (8.4-10.2); Hemolysis Index 0
[2019-05-11 02:13] LABS: INR 1.15 (0.87-1.13)
[2019-05-11 02:14] LABS: Partial Thromboplastin Time 35.5 Sec. (24.2-36.6); Thrombin Time 15.5 Sec. (15.1-19.6)
[2019-05-11] MEDS ORDERED: KIONEX PO ONE (02:18)
[2019-05-11] MEDS ORDERED: KIONEX PR ONE (03:15)
[2019-05-11 03:56] LABS: Glucose,CSF 84 mg/dL
[2019-05-11 04:36] LABS: Appearance,CSF Clear; White Blood Cell,CSF 0 /mm3 (1-10)
[2019-05-11 04:37] LABS: Red Blood Cell,CSF 0 /mm3 (0-0)
--- NOTE | 2019-05-11 04:41 | Cat Scan Report ---
CTA neck without and with intravenous contrast material, with multiplanar reconstruction and with thr ee-dimensional reconstructions produced utilizing an independent workstation. CLINICAL HISTORY: ams code stroke TECHNIQUE: Following acquisition of a timing bolus 0.63 mm thick contiguous axial scans were obtained from aorti c arch to the skull base during rapid bolus intravenous contrast infusion. In addition to evaluation of axial source images multiplanar reconstructions were produced and reviewed for this report. Three- dimensional reconstructions were produced utilizing an independent workstation. These were also revie wed for this report. FINDINGS: No abnormalities are seen at the origins of the great vessels. Common carotid arteries, carotid bifurcations and cervical portions of the internal carotid arteries all have a normal appearance. There is no indication of hemodynamically significant stenosis. The right vertebral artery is dominant. There is no indication of stenosis along the course of the ve rtebral arteries. Both vertebral arteries contribute to the basilar artery origin. The basilar artery has an unremarkable appearance. The degree of stenosis, if any, is determined utilizing NASCET like criteria. In this case there is no indication of hemodynamically significant stenosis. Marked emphysematous changes are noted. Hyperinflation of the visualized portions of both lungs is ob served. Extensive bullous changes are present. There is no indication of confluent infiltrate or lung nodule in the visualized lung eduardo. Evaluation of the nonvascular soft tissue structures reveal no additional abnormality. There is no indication of cervical lymphadenopathy. No abnormalities are see n along the course of the airway. Visualized portions of the parotid glands and the submandibular tan ivary glands have a normal appearance. Thyroid gland has a normal appearance. Evaluation of the cervical spine reveals mild cervical spondylosis. IMPRESSION: 1. No indication of hemodynamically significant stenosis or large vessel occlusion on CTA neck. 2. Advanced emphysematous changes in both lungs. This study was performed on 05/11/2019 at about 0244. I received a phone call from Melissa, the [facility] cytometry technologist, informing me that the examination had been performed at abou t 0320 hours. Contrast dose report: Omnipaque 350: 100 ml, administered intravenously All CT examinations performed at this facility utilize modulated dose reduction, iterative reconstruc tion or weight-based dosing, as appropriate, to obtain a radiation dose which is as low as can reason ably be achieved. Signer Name: Ramiro Diallo MD Signed: 05/11/2019 4:37 AM Workstation Name: [id number]
--- NOTE | 2019-05-11 04:47 | Cat Scan Report ---
CTA head with intravenous contrast CLINICAL HISTORY: MAIN: ams code stroke TECH NOTE: POSSIBLE STROKE TECHNIQUE: 0.625 mm thick contiguous axial scans were obtained from the skull base to the skull vertex during ra pid bolus administration of intravenous contrast material. Multiplanar reconstructions were produced in the coronal and sagittal planes. In addition 3 plane MIP instructions were produced and reviewed f or this report. The axial source images and reconstructed images were reviewed for this report. All CT scans at this location are performed using CT dose reduction for ALARA by means of automated e xposure control. FINDINGS: The caliber of the intracranial vessels is normal throughout. Note is made of calcified atherosclerot ic plaque along the cavernous segments of both internal carotid arteries. There is no associated sten osis. There is no indication of intracranial stenosis or large vessel occlusion. There is no indicati on of vasculitis. There is no evidence of aneurysm or other vascular malformation. 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 This is a normal anatomical variation. Evaluation of the extracranial structures is remarkable for evidence of bilateral cataract surgery. T here is marked thickening of the salazar of the right maxillary sinus. This is most likely secondary to chronic right maxillary sinusitis. IMPRESSION: 1. No indication of large vessel occlusion or intracranial stenosis on CTA head. This study was performed at about 0246 hours. I received a call from Melissa, the patient's CT technolog ist,who informed me that the study had been performed at about 0318 hours. CONTRAST DOSE REPORT: Omnipaque 350: 100 ml administered intravenously. Signer Name: Ramiro Diallo MD Signed: 05/11/2019 4:42 AM Workstation Name: [id number]
[2019-05-11 04:54] LABS: Basophils CSF 0 %
[2019-05-11] MEDS ORDERED: SYNTHROID IV STA (04:57)
[2019-05-11] MEDS ORDERED: VANCOMYCIN/NS 1 GM/250 ML 1 GM/250 ML BAG IV ONE (05:00)
[2019-05-11] MEDS: NACL 0.9% 1000 ML 1,000 ML IV SCH (06:31)
--- NOTE | 2019-05-11 06:40 | History and Physical Report ---
CHIEF COMPLAINT: Change in mental status. Other complaints include weakness and difficulty talking. HISTORY OF PRESENTING ILLNESS: The patient is a 78-year-old male who had incision and drainage done to his mouth area involving the upper lip when he had an abscess about 3-4 days ago and was discharged on antibiotic clindamycin. The patient was brought in by the daughter because of difficulty with speech. The patient has not been eating or drinking much like he does and also has been coughing with rattling sensation in the throat area. There is no history of fever or chills. There is no history of chest pain or shortness of breath, but daughter is worried that the patient is declining in his condition and he was brought in as code stroke to triage because of inability to talk and also because of altered mental status. The patient was not able to give history. PAST MEDICAL HISTORY: Pertinent for COPD, enlarged prostate. PAST SURGICAL HISTORY: Pertinent for surgery for peptic ulcer and also incision and drainage to the mouth a few days ago. FAMILY HISTORY: Noncontributory. SOCIAL HISTORY: The patient drinks alcohol. Used to smoke cigarette, but does not smoke currently and does not use illicit drug. MEDICATIONS: The patient is on Advair Diskus 100/50 mcg 1 puff by inhalation twice daily. The patient is also on aspirin 325 mg by mouth daily and vitamin B12 1000 mcg by mouth daily. The patient is also on Bentyl 20 mg by mouth t.i.d., Proscar 5 mg by mouth daily as well as Protonix 40 mg by mouth daily. The patient is on sertraline, Zoloft 50 mg by mouth daily and Norvasc 5 mg by mouth daily. The patient is on Zantac 150 mg by mouth daily and ProAir 2 puffs by inhalation q.i.d. The patient is also on prednisone 20 mg daily and clindamycin 300 mg every 8 hours. ALLERGIES: There are no known drug allergies. REVIEW OF SYSTEMS: CONSTITUTIONAL: There is no fever, no chills, no diaphoresis. HEENT: There is no headache or sore throat. CARDIOVASCULAR SYSTEM: There is no chest pain or orthopnea. RESPIRATORY SYSTEM: There is no shortness of breath, but there is cough and congestion. GASTROINTESTINAL SYSTEM: There is no nausea, no vomiting, no abdominal pain, diarrhea or constipation, but there is poor oral intake. NEUROLOGICAL SYSTEM: Change in mental status noted. Difficulty with speech noted. No dizziness. MUSCULOSKELETAL SYSTEM: There is no joint pain or swelling. DERMATOLOGICAL SYSTEM: There is no skin rash or itching. GENITOURINARY SYSTEM: There is no dysuria, hematuria, or flank pain. Rest of system review is normal. PHYSICAL EXAMINATION: GENERAL: At the time of exam, the patient was found to be alert, oriented to person, place, and not in acute distress. VITAL SIGNS: At the initial time of presentation shows a temperature of 99.3 degrees Fahrenheit, pulse of 103, respirations 20, blood pressure 125/92, O2 sat of initially 80% on room air. HEENT: Showed pupils to be equal, round, reactive to light and accommodating. Oral mucosa shows swelling in the upper lips where the patient had I and D done. NECK: Supple with no JVD or carotid bruit. CARDIOVASCULAR SYSTEM: Showed normal first and second heart sounds with no gallops or murmurs. RESPIRATORY SYSTEM: Show good air entry on both sides of the lungs with gurgling sound in the throat area. GASTROINTESTINAL SYSTEM: Show abdomen to be full, soft, nontender with no organomegaly or rigidity. NEUROLOGIC: Neuro exam shows no focal deficits. The patient could not talk easily. MUSCULOSKELETAL SYSTEM: Show no joint swelling or tenderness. DERMATOLOGICAL SYSTEM: Showed no skin rash. GENITOURINARY SYSTEM: Showing no costovertebral angle tenderness. PERTINENT LABORATORY AND IMAGING STUDIES: The patient had CT of the head without contrast done that shows moderate extensive small vessel ischemic changes without acute abnormality. There is finding of chronic right maxillary sinusitis. The patient also has CT angiogram of the head and neck done that shows no occlusion. The patient had chest x-ray done that shows emphysema without acute abnormality. Lab result, the patient's CBC showed elevated white count of 18,100 with slightly low hemoglobin of 10.5 and slightly low hematocrit of 32.1, and CBC differential showing elevated monocyte count of 12.3% with elevated segmented neutrophil count of 82.5%. The patient's coagulation studies were unremarkable and chemistry showed low sodium of 131 with slightly elevated potassium level of 5.4 and low chloride level of 89.1 with high CO2 of 31 and unremarkable renal function test. The patient's lactic acid level was high with a value of 2.2 and the patient's TSH level was high with a value of 29 with normal free T4 level. Urinalysis came back unremarkable. The patient had a lumbar puncture done with CSF showing colorless liquid with no cell and normal total protein with normal glucose level. The patient's toxicology screen was unremarkable. DIAGNOSES: 1. Altered mental status, rule out cerebrovascular accident. 2. Cellulitis of the lips. 3. Subclinical hypothyroidism. 4. Sepsis. PLAN OF CARE: 1. The patient will be admitted to telemetry. 2. The patient will continue IV vancomycin with pharmacy to dose and also will continue IV Rocephin started in the Emergency Room. Also, the patient will be on IV Levaquin 3. The patient will continue speech therapy consult requested by the Emergency Room physician. 4. The patient will be on IV maintenance fluid running at 125 mL an hour, having had the initial boluses for sepsis management. 5. The patient will have MRI of the brain done to rule out CVA and will have bilateral carotid Doppler done this morning. 6. The patient will have a 2D echo done this morning as part of evaluation for possible CVA. 7. The patient will have physical therapy consult for evaluation and treatment for weakness following CVA. 8. The patient will have lactic acid and TSH checked this morning. 9. The patient will have basic metabolic panel checked this morning because of hyperkalemia. 10. The patient will be on oxygen by nasal cannula at 2 liters per minute. 11. The patient will remain n.p.o. until seen by the speech therapist for swallow test. JOB# [id number] OCN/NTS
--- NOTE | 2019-05-11 09:53 | Vascular Lab Report ---
TECHNICAL DATA: Imaging was performed from the base of the neck to the skull base using duplex sonography and color-f low imaging with emphasis on the carotid and vertebral arterial systems. RIGHT CAROTID ARTERY: The right internal carotid artery, right external carotid, and right common carotid artery all well i kimber[place] and patent. Mild atherosclerotic plaque present at the carotid bifurcation. Right common carotid artery peak systolic velocity 124 cm/sec Right internal carotid artery peak systolic velocity 61 cm/sec Right internal carotid artery end diastolic velocity 20 cm/sec Right internal carotid artery/right common carotid artery ratio 0.5 Vertebral artery flow is antegrade. LEFT CAROTID ARTERY The left internal carotid artery, left external carotid, and left common carotid artery all well imag ed and patent. Mild atherosclerotic plaque present at the carotid bifurcation. Left common carotid artery peak systolic velocity 108 cm/sec Left internal carotid artery peak systolic velocity 75 cm/sec Left internal carotid artery end diastolic velocity 22 cm/sec Left internal carotid artery/right common carotid artery ratio 0.75 Normal antegrade flow of the vertebral arteries. IMPRESSION: 1. Right and left internal carotid arteries <15% stenosis: deceleration spectral broadening with a peak systolic velocity (PSV) <125 cm per second. 2. Normal common carotid arteries. 3. Normal external carotid arteries. 4. Antegrade flow both vertebral arteries. Sonographic NASCET Index This study proposed the incorporation of distal ICA flow velocity information on the conventional car otid Doppler study improving the diagnostic accuracy of PSV 1. * <15% stenosis: * deceleration spectral broadening with a peak systolic velocity (PSV) <125 cm per second * 16-49% stenosis: * pansystolic spectral broadening with a PSV <125 cm/s * 50-69% stenosis: * pansystolic spectral broadening with a PSV of >125 cm/s * and * end diastolic velocity (EDV) <110 cm/s or ICA/CCA PSV ratio >2 but <4 * 70-79% stenosis: * pansystolic spectral broadening with PSV >270 cm/s * or * EDV >110 cm/s * or * ICA/CCA PSV ratio >4 * 80-99% stenosis: EDV >140 cm/s * complete occlusion: no flow; terminal thump Signer Name: Butch Linares MD Signed: 05/11/2019 9:49 AM Workstation Name: [id number]
[2019-05-11] MEDS ORDERED: LEVAQUIN 750MG/150ML 750 MG/150 ML BAG IV ONE (10:00)
--- NOTE | 2019-05-11 12:32 | Magnetic Resonance Report ---
MRI BRAIN WITHOUT CONTRAST INDICATION / CLINICAL INFORMATION: STROKE SYMPTOMS. TECHNIQUE: Multiplanar, multisequence MR images of the brain were obtained. COMPARISON: CT head 05/11/2019 and 07/03/2009. FINDINGS: BRAIN / INTRACRANIAL CONTENTS: There is an extra-axial mass lesion measuring about 1.4 cm in greatest dimension located along the la teral convexity of the left frontal lobe approaching the vertex. This represents a meningioma. I do n ot identify comparable abnormality on head CT dated 07/03/2009. Age-related parenchymal volume loss is demonstrated. Dilatation of the cortical sulci and ventricular system is noted in keeping with the p atient's stated age of 78 years. Periventricular and deep white matter hyperintensities noted consist ent with age-related microvascular ischemic changes. There is no mass effect. No evidence of intracra nial hemorrhage or extra-axial fluid collection is seen. There is no indication of remote cortical in farction. Diffusion weighted scans are negative. There is no indication of acute ischemic injury. Microvascular ischemic changes are present within the jamin. The brainstem and cerebellum have an unre markable appearance. CRANIOCERVICAL JUNCTION: No abnormalities are identified at the craniocervical junction. VASCULAR FLOW-VOIDS: Normal flow-voids are present within the major intracranial vessels. ORBITS: Patient is status post right-sided cataract surgery. The orbits have an otherwise unremarkabl e appearance. SINUSES / MASTOIDS: Opacification of the right maxillary sinus is noted. In addition there is marked thickening of the bony salazar of the maxillary sinus on the right. These findings may reflect chronic sinusitis. Similar changes were present on recent previous studies. Maxillary sinuses were excluded o n remote head CT. There is no additional indication of inflammatory disease in the paranasal sinuses or mastoid air cells. ADDITIONAL FINDINGS: None. IMPRESSION: 1. 1.4 cm diameter left frontal meningioma appears to have developed since head CT 07/03/2009. 2. Age-related involutional changes of parenchymal volume loss and microvascular ischemia. 3. No indication of recent infarction. Signer Name: Ramiro Diallo MD Signed: 05/11/2019 12:27 PM Workstation Name: [id number]
--- NOTE | 2019-05-11 15:26 | Progress Note ---
History Interval history: Patient remains lethargic and mostly obtunded. Multiple attempts to wake patient throughout the day between myself and the daughter. Hospitalist Physical - Constitutional Vitals: Temp Pulse Resp BP Pulse Ox 97.8 F 101 H 20 126/69 100 05/11/19 06:24 05/11/19 06:24 05/11/19 06:24 05/11/19 06:24 05/11/19 06:24 Results - Labs CBC & Chem 7: 05/11/19 01:34 05/11/19 01:34 Labs: Laboratory Last Values WBC 18.1 K/mm3 (4.5-11.0) H 05/11/19 01:34 RBC 3.52 M/mm3 (3.65-5.03) L 05/11/19 01:34 Hgb 10.5 gm/dl (11.8-15.2) L 05/11/19 01:34 Hct 32.1 % (35.5-45.6) L 05/11/19 01:34 MCV 91 fl (84-94) 05/11/19 01:34 MCH 30 pg (28-32) 05/11/19 01:34 MCHC 33 % (32-34) 05/11/19 01:34 RDW 13.7 % (13.2-15.2) 05/11/19 01:34 Plt Count 333 K/mm3 (140-440) 05/11/19 01:34 Lymph % (Auto) 5.1 % (13.4-35.0) L 05/11/19 01:34 [place] % (Auto) 12.3 % (0.0-7.3) H 05/11/19 01:34 Eos % (Auto) 0.0 % (0.0-4.3) 05/11/19 01:34 Baso % (Auto) 0.1 % (0.0-1.8) 05/11/19 01:34 Lymph # 0.9 K/mm3 (1.2-5.4) L 05/11/19 01:34 [place] # 2.2 K/mm3 (0.0-0.8) H 05/11/19 01:34 Eos # 0.0 K/mm3 (0.0-0.4) 05/11/19 01:34 Baso # 0.0 K/mm3 (0.0-0.1) 05/11/19 01:34 Seg Neutrophils % 82.5 % (40.0-70.0) H 05/11/19 01:34 Seg Neutrophils # 15.0 K/mm3 (1.8-7.7) H 05/11/19 01:34 PT 14.4 Sec. (12.2-14.9) 05/11/19 01:34 INR 1.15 (0.87-1.13) H 05/11/19 01:34 APTT 35.5 Sec. (24.2-36.6) 05/11/19 01:34 15.5 Sec. (15.1-19.6) 05/11/19 01:34 Sodium 131 mmol/L (137-145) L 05/11/19 01:34 Potassium 5.4 mmol/L (3.6-5.0) H D 05/11/19 01:34 Chloride 89.1 mmol/L (98-107) L 05/11/19 01:34 Carbon Dioxide 31 mmol/L (22-30) H 05/11/19 01:34 16 mmol/L 05/11/19 01:34 BUN 23 mg/dL (9-20) H 05/11/19 01:34 1.3 mg/dL (0.8-1.5) 05/11/19 01:34 Estimated GFR > 60 ml/min 05/11/19 01:34 18 % 05/11/19 01:34 Glucose 120 mg/dL (75-100) H 05/11/19 01:34 POC Glucose 132 (70-105) H 05/11/19 07:58 Lactic Acid 1.20 mmol/L (0.7-2.0) 05/11/19 12:50 Calcium 9.3 mg/dL (8.4-10.2) 05/11/19 01:34 Magnesium 2.00 mg/dL (1.7-2.3) 05/11/19 01:34 149 units/L (55-170) 05/11/19 01:34 < 0.010 ng/mL (0.00-0.029) 05/11/19 01:34 TSH 22.300 mlU/mL (0.270-4.200) H 05/11/19 06:44 Free T4 0.88 ng/dL (0.76-1.46) 05/11/19 03:18 Yellow (Yellow) 05/11/19 01:30 Clear (Clear) 05/11/19 01:30 5.0 (5.0-7.0) 05/11/19 01:30 Ur Specific [place] 1.014 (1.003-1.030) 05/11/19 01:30 <15 mg/dl mg/dL (Negative) 05/11/19 01:30 Neg mg/dL (Negative) 05/11/19 01:30 Neg mg/dL (Negative) 05/11/19 01:30 Neg (Negative) 05/11/19 01:30 Neg (Negative) 05/11/19 01:30 Neg (Negative) 05/11/19 01:30 < 2.0 mg/dL (<2.0) 05/11/19 01:30 Ur Leukocyte Esterase Neg (Negative) 05/11/19 01:30 1.0 /HPF (0.0-6.0) 05/11/19 01:30 < 1.0 /HPF (0.0-6.0) 05/11/19 01:30 Few /HPF 05/11/19 01:30 Clear 05/11/19 03:15 Colorless 05/11/19 03:15 0 /mm3 (1-10) 05/11/19 03:15 0 /mm3 (0-0) 05/11/19 03:15 CSF Seg Neutrophils 0 % (0-6) 05/11/19 03:15 0 % (40-80) 05/11/19 03:15 CSF Reactive Lymphs 0 % 05/11/19 03:15 0 % (15-45) 05/11/19 03:15 0 % 05/11/19 03:15 0 % 05/11/19 03:15 No cells seen 05/11/19 03:15 C 05/11/19 03:15 84 mg/dL 05/11/19 03:15 14 mg/dL 05/11/19 03:15 Salicylates < 0.3 mg/dL (2.8-20.0) L 05/11/19 01:34 Acetaminophen < 5.0 ug/mL (10.0-30.0) L 05/11/19 01:34 Active Medications - Current Medications Current Medications: Generic Name Dose Route Start Last Admin Trade Name Freq PRN Reason Stop Dose Admin Ceftriaxone Sodium 2 gm in 100 mls @ 100 mls/hr 05/11/19 02:00 05/11/19 02:02 Rocephin/Ns 2 Gm/100 Ml IV 100 mls/hr ONCE KAMI Administration Sodium Chloride 1,000 mls @ 125 mls/hr 05/11/19 06:00 05/11/19 06:31 Nacl 0.9% 1000 Ml IV 125 mls/hr DIRECT KAMI Administration Ceftriaxone Sodium 1 gm in 50 mls @ 100 mls/hr 05/12/19 02:00 Rocephin/Ns 1 Gm/50 Ml IV Q24H KAMI Protocol Levofloxacin/Dextrose 500 mg in 100 mls @ 100 mls/hr 05/13/19 10:00 Levaquin 500mg/100ml IV Q48HR KAMI Nutrition/Malnutrition Assess - Dietary Evaluation Nutrition/Malnutrition Findings: Nutrition Notes Start: 05/11/19 15:09 Freq: Status: Active Protocol: Document 05/11/19 15:09 [facility] (Rec: 05/11/19 15:19 [facility] [id number]) Nutrition Notes Need for Assessment 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 from: 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 Pt is s/p I&D of lip abscess. Per pt's daughter, pt has not been eating, talking or walking. She says pt has always been skinny and usually has a " pretty good appetite". Pt sounds congested; says he does not want Ensure. Pt receives O[facility] from [facility] as well. Pt may benefit from swallow eval before diet advancement. Burn Absent Trauma Absent Current % PO Negligible Energy Intake (severe) < or equal to 50% Estimated Energy Requirement > or equal to 5 days Body Fat Depletion Moderate depletion (severe) Muscle Mass Moderate Depletion (severe) #1 Nutrition Diagnosis Malnutrition Etiology illness As Evidenced by Signs and Symptoms decreased PO intake, unintentional wt loss, BMI 15. 9, subcutaneous fat loss, muscle wasting Is patient on ventilator? No Is Patient Ambulatory and/or Out of Bed No REE-([place]-confined to bed) 1262.316 Kcal/Kg value to use for calculation 40 Approximate Energy Requirements Using 1680 kcal/Kg Calculation Used for Recommendations Kcal/kg Additional Notes Pro needs 1.2-1.5g/k-63g/ day Fluid needs 1ml/kcal Nutrition Intervention Change Diet Order: Advance diet when medically feasible (recommend mech soft with chopped meats) Goal #1 Diet advancement to meet nutrient needs Goal #2 Wt maintenance and/or gain Anticipated Discharge Needs: Pt will benefit from ONS 2-3 times daily Follow-Up By: 05/13/19 Additional Comments F/U: diet advancement
--- NOTE | 2019-05-11 19:04 | Event Note ---
Date: 05/11/19 Patient elderly male that presents from home with altered mental status encephalopathic. Patient initially went to ER to have incision and drainage of abscess on lip. After second day patient began to slowly decompensate at evidence by decreased cognition, increased somnolence. Patient today appeared to be a little more alert. Will open eyes for daughter for daughter for very brief period of time. Then go back to sleep. She currently being worked up for possible TIA CVA. All infection. Patient has had lumbar puncture no evidence of infection. She is afebrile. Not sure not sure of exact underlying etiology. #1 rule out CVA. Patient negative CT scan. Still not waking up. May require MRI. Await any neural input. #2 metabolic encephalopathy I still think this is a metabolic issue. Possible polypharmacy. #3 ruled out infection negative lumbar puncture. Chest x-ray unremarkable. Afebrile. Patient now with unremarkable echocardiogram ejection fraction of 55%. MRI evaluated frontal meningioma which has been since 2008. Age-related volume loss. At this particular time despite frontal meningioma patient symptoms appeared to be a little more acute than to be a new meningioma. We'll appreciate any neurologic input.
[2019-05-11] MEDS ORDERED: PROVENTIL IH PRN (23:32)
[2019-05-12] MEDS: ROCEPHIN/NS 1 GM/50 ML 1 GM/50 ML BAG IV SCH (01:27)
[2019-05-12] MEDS: NACL 0.9% 1000 ML 1,000 ML IV SCH ×3 (01:50→17:47)
[2019-05-12] MEDS: DUONEB *Not for PRN Use IH SCH ×4 (08:05→20:52)
[2019-05-12] MEDS ORDERED: SPIRIVA IH SCH (09:00)
--- NOTE | 2019-05-12 09:04 | Progress Note ---
History Interval history: pt ias more alert today asking for water and states that he is in pain Hospitalist Physical - Constitutional Vitals: Temp Pulse Resp BP Pulse Ox 98.4 F 95 H 20 144/75 98 05/12/19 04:09 05/12/19 04:09 05/12/19 04:09 05/12/19 04:09 05/12/19 04:09 Results - Labs CBC & Chem 7: 05/11/19 01:34 05/11/19 01:34 Labs: Laboratory Last Values WBC 18.1 K/mm3 (4.5-11.0) H 05/11/19 01:34 RBC 3.52 M/mm3 (3.65-5.03) L 05/11/19 01:34 Hgb 10.5 gm/dl (11.8-15.2) L 05/11/19 01:34 Hct 32.1 % (35.5-45.6) L 05/11/19 01:34 MCV 91 fl (84-94) 05/11/19 01:34 MCH 30 pg (28-32) 05/11/19 01:34 MCHC 33 % (32-34) 05/11/19 01:34 RDW 13.7 % (13.2-15.2) 05/11/19 01:34 Plt Count 333 K/mm3 (140-440) 05/11/19 01:34 Lymph % (Auto) 5.1 % (13.4-35.0) L 05/11/19 01:34 [place] % (Auto) 12.3 % (0.0-7.3) H 05/11/19 01:34 Eos % (Auto) 0.0 % (0.0-4.3) 05/11/19 01:34 Baso % (Auto) 0.1 % (0.0-1.8) 05/11/19 01:34 Lymph # 0.9 K/mm3 (1.2-5.4) L 05/11/19 01:34 [place] # 2.2 K/mm3 (0.0-0.8) H 05/11/19 01:34 Eos # 0.0 K/mm3 (0.0-0.4) 05/11/19 01:34 Baso # 0.0 K/mm3 (0.0-0.1) 05/11/19 01:34 Seg Neutrophils % 82.5 % (40.0-70.0) H 05/11/19 01:34 Seg Neutrophils # 15.0 K/mm3 (1.8-7.7) H 05/11/19 01:34 PT 14.4 Sec. (12.2-14.9) 05/11/19 01:34 INR 1.15 (0.87-1.13) H 05/11/19 01:34 APTT 35.5 Sec. (24.2-36.6) 05/11/19 01:34 15.5 Sec. (15.1-19.6) 05/11/19 01:34 Sodium 131 mmol/L (137-145) L 05/11/19 01:34 Potassium 5.4 mmol/L (3.6-5.0) H D 05/11/19 01:34 Chloride 89.1 mmol/L (98-107) L 05/11/19 01:34 Carbon Dioxide 31 mmol/L (22-30) H 05/11/19 01:34 16 mmol/L 05/11/19 01:34 BUN 23 mg/dL (9-20) H 05/11/19 01:34 1.3 mg/dL (0.8-1.5) 05/11/19 01:34 Estimated GFR > 60 ml/min 05/11/19 01:34 18 % 05/11/19 01:34 Glucose 120 mg/dL (75-100) H 05/11/19 01:34 POC Glucose 132 (70-105) H 05/11/19 07:58 Lactic Acid 1.20 mmol/L (0.7-2.0) 05/11/19 12:50 Calcium 9.3 mg/dL (8.4-10.2) 05/11/19 01:34 Magnesium 2.00 mg/dL (1.7-2.3) 05/11/19 01:34 149 units/L (55-170) 05/11/19 01:34 < 0.010 ng/mL (0.00-0.029) 05/11/19 01:34 TSH 22.300 mlU/mL (0.270-4.200) H 05/11/19 06:44 Free T4 0.88 ng/dL (0.76-1.46) 05/11/19 03:18 Yellow (Yellow) 05/11/19 01:30 Clear (Clear) 05/11/19 01:30 5.0 (5.0-7.0) 05/11/19 01:30 Ur Specific [place] 1.014 (1.003-1.030) 05/11/19 01:30 <15 mg/dl mg/dL (Negative) 05/11/19 01:30 Neg mg/dL (Negative) 05/11/19 01:30 Neg mg/dL (Negative) 05/11/19 01:30 Neg (Negative) 05/11/19 01:30 Neg (Negative) 05/11/19 01:30 Neg (Negative) 05/11/19 01:30 < 2.0 mg/dL (<2.0) 05/11/19 01:30 Ur Leukocyte Esterase Neg (Negative) 05/11/19 01:30 1.0 /HPF (0.0-6.0) 05/11/19 01:30 < 1.0 /HPF (0.0-6.0) 05/11/19 01:30 Few /HPF 05/11/19 01:30 Clear 05/11/19 03:15 Colorless 05/11/19 03:15 0 /mm3 (1-10) 05/11/19 03:15 0 /mm3 (0-0) 05/11/19 03:15 CSF Seg Neutrophils 0 % (0-6) 05/11/19 03:15 0 % (40-80) 05/11/19 03:15 CSF Reactive Lymphs 0 % 05/11/19 03:15 0 % (15-45) 05/11/19 03:15 0 % 05/11/19 03:15 0 % 05/11/19 03:15 No cells seen 05/11/19 03:15 C 05/11/19 03:15 84 mg/dL 05/11/19 03:15 14 mg/dL 05/11/19 03:15 Salicylates < 0.3 mg/dL (2.8-20.0) L 05/11/19 01:34 Acetaminophen < 5.0 ug/mL (10.0-30.0) L 05/11/19 01:34 Active Medications - Current Medications Current Medications: Generic Name Dose Route Start Last Admin Trade Name Freq PRN Reason Stop Dose Admin Albuterol 2.5 mg 05/11/19 23:32 05/12/19 00:48 Proventil IH 2.5 mg Q4HRT PRN Administration Shortness Of Breath Albuterol/Ipratropium 1 ampul 05/12/19 08:00 05/12/19 08:05 Duoneb *Not For Prn Use* IH 1 ampul TIDRT KAMI Administration Sodium Chloride 1,000 mls @ 125 mls/hr 05/11/19 06:00 05/12/19 01:50 Nacl 0.9% 1000 Ml IV 125 mls/hr DIRECT KAMI Administration Ceftriaxone Sodium 1 gm in 50 mls @ 100 mls/hr 05/12/19 02:00 05/12/19 01:27 Rocephin/Ns 1 Gm/50 Ml IV 100 mls/hr Q24H KAMI Administration Protocol Levofloxacin/Dextrose 500 mg in 100 mls @ 100 mls/hr 05/13/19 10:00 Levaquin 500mg/100ml IV Q48HR KAMI Nutrition/Malnutrition Assess - Dietary Evaluation Nutrition/Malnutrition Findings: Nutrition Notes Start: 05/11/19 15:09 Freq: Status: Active Protocol: Document 05/11/19 15:09 KIARA (Rec: 05/11/19 15:19 KIARA SRW-[email or web address] [email or web address]) Nutrition Notes Need for Assessment generated from: day care home provider,MST Initial or Follow up Assessment Current Diagnosis COPD,Sepsis Other Pertinent Diagnosis Cellulitis of lips, AMS Current Diet No diet ordered Labs/Tests TSH 22.3 K 5.4 Na 131 Pertinent Medications NS at 125ml/hr Height 5 ft 4 in Weight 42.003 kg Usual Body Weight 45.45 kg [place] Body Weight (kg) 59.09 BMI 15.9 Intake Prior to Admission Poor Weight change and time frame Pt with 7.6% unintentional wt loss (unsure of time frame) Weight Status Underweight Subjective/Other Information Pt screened for malnutrition risk (wt loss, poor appetite) and skin risk (Levi score unavailable). Pt is s/p I&D of lip abscess. Per pt's daughter, pt has not been eating, talking or walking. She says pt has always been skinny and usually has a " pretty good appetite". Pt sounds congested; says he does not want Ensure. Pt [facility] ONS from [facility] as well. Pt may benefit from swallow eval before diet advancement. Burn Absent Trauma Absent Current % PO Negligible Energy Intake (severe) < or equal to 50% Estimated Energy Requirement > or equal to 5 days Body Fat Depletion Moderate depletion (severe) Muscle Mass Moderate Depletion (severe) #1 Nutrition Diagnosis Malnutrition Etiology illness As Evidenced by Signs and Symptoms decreased PO intake, unintentional wt loss, BMI 15. 9, subcutaneous fat loss, muscle wasting Is patient on ventilator? No Is Patient Ambulatory and/or Out of Bed No REE-([place]-confined to bed) 1262.316 Kcal/Kg value to use for calculation 40 Approximate Energy Requirements Using 1680 kcal/Kg Calculation Used for Recommendations Kcal/kg Additional Notes Pro needs 1.2-1.5g/k-63g/ day Fluid needs 1ml/kcal Nutrition Intervention Change Diet Order: Advance diet when medically feasible (recommend mech soft with chopped meats) Goal #1 Diet advancement to meet nutrient needs Goal #2 Wt maintenance and/or gain Anticipated Discharge Needs: Pt will benefit from ONS 2-3 times daily Follow-Up By: 05/13/19 Additional Comments F/U: diet advancement
[2019-05-12] MEDS: NORCO 5/325 PO PRN (09:54)
--- NOTE | 2019-05-12 15:01 | Progress Note ---
Assessment and Plan - Patient Problems (1) Malnutrition Current Visit: Yes Status: Acute Plan to address problem: Subsequent dietitian consult for severe protein deficiency malnutrition. Patient remains cachectic. Does have improved appetite. Will start patient on mechanical soft diet and titrate accordingly. (2) Acute encephalopathy Current Visit: Yes Status: Acute Plan to address problem: Unsure exactly the cause of encephalopathy however differential remains medications possible polypharmacy. Ruled out for stroke rule out for infection. She is able to interact me appropriately. Metabolic disease from uncontrolled hyperthyroidism remains in differential (3) SIRS (systemic inflammatory response syndrome) Current Visit: Yes Status: Acute Plan to address problem: Empiric antibiotic coverage no evidence of infection can DC antibiotics. (4) COPD exacerbation Current Visit: No Status: Acute Plan to address problem: Patient COD exacerbation continue nebulizers continue O2. Continue supportive care. (5) Lip abscess Current Visit: No Status: Acute Plan to address problem: Will require wound treatment eval. To soften lesion up for tomorrow. We'll ob tain old treatment consult will require Betadine and normal saline solution to unpack gauze. (6) Physical debility Current Visit: Yes Status: Acute Plan to address problem: [place] has been down several days will immediately start patient on physical therapy in a.m. History Interval history: Patient much more alert today able to communicate. Able to tell me he was in pain. Patient able to say thank you. No long encephalopathic remains weak. Hospitalist Physical - Constitutional Vitals: Temp Pulse Resp BP Pulse Ox 98.2 F 104 H 20 146/71 97 05/12/19 12:11 05/12/19 12:49 05/12/19 12:49 05/12/19 12:11 05/12/19 12:11 General appearance: Present: no acute distress, cachectic, other (temporal wasting.) - EENT Eyes: Present: PERRL, EOM intact. Absent: scleral icterus, conjunctival injection, exopthalmos, miosis, mydriasis, discharge ENT: hearing intact, clear oral mucosa, dentition normal, poor dentition - Neck Neck: Present: supple, normal ROM - Respiratory Respiratory: bilateral: other (coarse breath sounds anteriorly. ACEs appear clear.) - Cardiovascular Rhythm: regular Heart Sounds: Present: S1 & S2 - Extremities Extremities: no ischemia, pulses intact, pulses symmetrical, No edema, normal temperature, normal color Peripheral Pulses: within normal limits - Abdominal General gastrointestinal: soft, non-tender, hypoactive bowel sounds, other (scaphoid abdomen), no hepatomegaly, no splenomegaly - Integumentary Integumentary: Present: clear, warm, dry - Psychiatric Psychiatric: appropriate mood/affect, intact judgment & insight, memory intact, cooperative - Neurologic Neurologic: CNII-XII intact, moves all extremities, other (generalized weakness.) Results - Labs CBC & Chem 7: 05/11/19 01:34 05/11/19 01:34 Labs: Laboratory Last Values WBC 18.1 K/mm3 (4.5-11.0) H 05/11/19 01:34 RBC 3.52 M/mm3 (3.65-5.03) L 05/11/19 01:34 Hgb 10.5 gm/dl (11.8-15.2) L 05/11/19 01:34 Hct 32.1 % (35.5-45.6) L 05/11/19 01:34 MCV 91 fl (84-94) 05/11/19 01:34 MCH 30 pg (28-32) 05/11/19 01:34 MCHC 33 % (32-34) 05/11/19 01:34 RDW 13.7 % (13.2-15.2) 05/11/19 01:34 Plt Count 333 K/mm3 (140-440) 05/11/19 01:34 Lymph % (Auto) 5.1 % (13.4-35.0) L 05/11/19 01:34 [place] % (Auto) 12.3 % (0.0-7.3) H 05/11/19 01:34 Eos % (Auto) 0.0 % (0.0-4.3) 05/11/19 01:34 Baso % (Auto) 0.1 % (0.0-1.8) 05/11/19 01:34 Lymph # 0.9 K/mm3 (1.2-5.4) L 05/11/19 01:34 [place] # 2.2 K/mm3 (0.0-0.8) H 05/11/19 01:34 Eos # 0.0 K/mm3 (0.0-0.4) 05/11/19 01:34 Baso # 0.0 K/mm3 (0.0-0.1) 05/11/19 01:34 Seg Neutrophils % 82.5 % (40.0-70.0) H 05/11/19 01:34 Seg Neutrophils # 15.0 K/mm3 (1.8-7.7) H 05/11/19 01:34 PT 14.4 Sec. (12.2-14.9) 05/11/19 01:34 INR 1.15 (0.87-1.13) H 05/11/19 01:34 APTT 35.5 Sec. (24.2-36.6) 05/11/19 01:34 15.5 Sec. (15.1-19.6) 05/11/19 01:34 Sodium 131 mmol/L (137-145) L 05/11/19 01:34 Potassium 5.4 mmol/L (3.6-5.0) H D 05/11/19 01:34 Chloride 89.1 mmol/L (98-107) L 05/11/19 01:34 Carbon Dioxide 31 mmol/L (22-30) H 05/11/19 01:34 16 mmol/L 05/11/19 01:34 BUN 23 mg/dL (9-20) H 05/11/19 01:34 1.3 mg/dL (0.8-1.5) 05/11/19 01:34 Estimated GFR > 60 ml/min 05/11/19 01:34 18 % 05/11/19 01:34 Glucose 120 mg/dL (75-100) H 05/11/19 01:34 POC Glucose 132 (70-105) H 05/11/19 07:58 Lactic Acid 1.20 mmol/L (0.7-2.0) 05/11/19 12:50 Calcium 9.3 mg/dL (8.4-10.2) 05/11/19 01:34 Magnesium 2.00 mg/dL (1.7-2.3) 05/11/19 01:34 149 units/L (55-170) 05/11/19 01:34 < 0.010 ng/mL (0.00-0.029) 05/11/19 01:34 TSH 22.300 mlU/mL (0.270-4.200) H 05/11/19 06:44 Free T4 0.88 ng/dL (0.76-1.46) 05/11/19 03:18 Yellow (Yellow) 05/11/19 01:30 Clear (Clear) 05/11/19 01:30 5.0 (5.0-7.0) 05/11/19 01:30 Ur Specific [place] 1.014 (1.003-1.030) 05/11/19 01:30 <15 mg/dl mg/dL (Negative) 05/11/19 01:30 Neg mg/dL (Negative) 05/11/19 01:30 Neg mg/dL (Negative) 05/11/19 01:30 Neg (Negative) 05/11/19 01:30 Neg (Negative) 05/11/19 01:30 Neg (Negative) 05/11/19 01:30 < 2.0 mg/dL (<2.0) 05/11/19 01:30 Ur Leukocyte Esterase Neg (Negative) 05/11/19 01:30 1.0 /HPF (0.0-6.0) 05/11/19 01:30 < 1.0 /HPF (0.0-6.0) 05/11/19 01:30 Few /HPF 05/11/19 01:30 Clear 05/11/19 03:15 Colorless 05/11/19 03:15 0 /mm3 (1-10) 05/11/19 03:15 0 /mm3 (0-0) 05/11/19 03:15 CSF Seg Neutrophils 0 % (0-6) 05/11/19 03:15 0 % (40-80) 05/11/19 03:15 CSF Reactive Lymphs 0 % 05/11/19 03:15 0 % (15-45) 05/11/19 03:15 0 % 05/11/19 03:15 0 % 05/11/19 03:15 No cells seen 05/11/19 03:15 C 05/11/19 03:15 84 mg/dL 05/11/19 03:15 14 mg/dL 05/11/19 03:15 Salicylates < 0.3 mg/dL (2.8-20.0) L 05/11/19 01:34 Acetaminophen < 5.0 ug/mL (10.0-30.0) L 05/11/19 01:34 - Imaging and Cardiology Chest x-ray: image reviewed CT Scan - head: report reviewed Active Medications - Current Medications Current Medications: Generic Name Dose Route Start Last Admin Trade Name Freq PRN Reason Stop Dose Admin Acetaminophen/Hydrocodone Bitart 1 each 05/12/19 09:03 05/12/19 09:54 [place] 5/325 PO 1 each Q6H PRN Administration Pain, Moderate (4-6) Albuterol 2.5 mg 05/11/19 23:32 05/12/19 00:48 Proventil IH 2.5 mg Q4HRT PRN Administration Shortness Of Breath Albuterol/Ipratropium 1 ampul 05/12/19 08:00 05/12/19 13:43 Duoneb *Not For Prn Use* IH Not Given TIDRT KAMI Sodium Chloride 1,000 mls @ 125 mls/hr 05/11/19 06:00 05/12/19 09:54 Nacl 0.9% 1000 Ml IV 125 mls/hr DIRECT KAMI Administration Ceftriaxone Sodium 1 gm in 50 mls @ 100 mls/hr 05/12/19 02:00 05/12/19 01:27 Rocephin/Ns 1 Gm/50 Ml IV 100 mls/hr Q24H KAMI Administration Protocol Nutrition/Malnutrition Assess - Dietary Evaluation Nutrition/Malnutrition Findings: Nutrition Notes Start: 05/11/19 15:09 Freq: Status: Active Protocol: Document 05/11/19 15:09 KIARA (Rec: 05/11/19 15:19 [facility] SRW- [id number]) Nutrition Notes Need for Assessment generated from: electronic funds transfer coordinator,MST Initial or Follow up Assessment Current Diagnosis COPD,Sepsis Other Pertinent Diagnosis Cellulitis of lips, AMS Current Diet No diet ordered Labs/Tests TSH 22.3 K 5.4 Na 131 Pertinent Medications NS at 125ml/hr Height 5 ft 4 in Weight 42.003 kg Usual Body Weight 45.45 kg [place] Body Weight (kg) 59.09 BMI 15.9 Intake Prior to Admission Poor Weight change and time frame Pt with 7.6% unintentional wt loss (unsure of time frame) Weight Status Underweight Subjective/Other Information Pt screened for malnutrition risk (wt loss, poor appetite) and skin risk (Levi score unavailable). Pt is s/p I&D of lip abscess. Per pt's daughter, pt has not been eating, talking or walking. She says pt has always been skinny and usually has a " pretty good appetite". Pt sounds congested; says he does not want Ensure. Pt receives ONS from [facility] as well. Pt may benefit from swallow eval before diet advancement. Burn Absent Trauma Absent Current % PO Negligible Energy Intake (severe) < or equal to 50% Estimated Energy Requirement > or equal to 5 days Body Fat Depletion Moderate depletion (severe) Muscle Mass Moderate Depletion (severe) #1 Nutrition Diagnosis Malnutrition Etiology illness As Evidenced by Signs and Symptoms decreased PO intake, unintentional wt loss, BMI 15. 9, subcutaneous fat loss, muscle wasting Is patient on ventilator? No Is Patient Ambulatory and/or Out of Bed No REE-([place]-confined to bed) 1262.316 Kcal/Kg value to use for calculation 40 Approximate Energy Requirements Using 1680 kcal/Kg Calculation Used for Recommendations Kcal/kg Additional Notes Pro needs 1.2-1.5g/k-63g/ day Fluid needs 1ml/kcal Nutrition Intervention Change Diet Order: Advance diet when medically feasible (recommend mech soft with chopped meats) Goal #1 Diet advancement to meet nutrient needs Goal #2 Wt maintenance and/or gain Anticipated Discharge Needs: Pt will benefit from ONS 2-3 times daily Follow-Up By: 05/13/19 Additional Comments F/U: diet advancement
[2019-05-13] MEDS: ROCEPHIN/NS 1 GM/50 ML 1 GM/50 ML BAG IV SCH (02:53)
[2019-05-13 05:56] LABS: Basophils % (Auto) 0.1 % (0.0-1.8); Eosinophils % (Auto) 0.1 % (0.0-4.3); Hemoglobin 9.5 gm/dl (11.8-15.2); Lymphocytes % (Auto) 8.9 % (13.4-35.0); Mean Corpuscular HGB Conc 34 % (32-34); Mean Corpuscular Volume 90 fl (84-94); Monocytes # (Auto) 1.1 K/mm3 (0.0-0.8); Monocytes % (Auto) 9.6 % (0.0-7.3); Platelet Count 323 K/mm3 (140-440); Red Blood Count 3.12 M/mm3 (3.65-5.03); Red Cell Distribution Width 14.2 % (13.2-15.2)
[2019-05-13] MEDS: NORCO 5/325 PO PRN ×2 (05:58→13:24)
[2019-05-13 06:14] LABS: BUN/Creatinine Ratio 14; Blood Urea Nitrogen 13 mg/dL (9-20); Hemolysis Index 1
[2019-05-13] MEDS: DUONEB *Not for PRN Use IH SCH ×3 (08:32→20:36)
[2019-05-13] MEDS ORDERED: LEVAQUIN 500MG/100ML 500 MG/100 ML BAG IV SCH (10:00)
--- NOTE | 2019-05-13 12:22 | Progress Note ---
Assessment and Plan Assessment and plan: -- Acute metabolic encephalopathy Current Visit: Yes Status: Acute Plan to address problem: Multifactorial, CVA-like symptoms, hypothyroidism Neuro workup is in progress, SIRS, malnutrition, advanced age and dementia Continue supportive care, follow neuro workup and neurology recommendations The underlying cause --Possible CVA ;workup in progress Aspirin and statin Neurology consult, follow neuro workup Physical therapy occupational therapy and speech therapy. --Meningioma on MRI; Supportive care, neurology consult --Hypothyroidism; Patient received IV Synthroid Start oral Synthroid, patient may need to see rn social work upon discharge Consider thyroid scan if needed -- Severe Malnutrition; BMI 17.7 Current Visit: Yes Status: Acute Plan to address problem: Subsequent dietitian consult for severe protein deficiency malnutrition. Patient remains cachectic. Consider Megace if needed --SIRS (systemic inflammatory response syndrome) Current Visit: Yes Status: Acute Plan to address problem: Empiric antibiotic coverage no evidence of infection can DC antibiotics. --Acute COPD exacerbation; Current Visit: No Status: Acute Plan to address problem: Oxygen titrated O2 sats more than 90%, nebulizers, IV steroids Supportive care --Sepsis/ Lip wound Current Visit: No Status: Acute Plan to address problem: clindamycin, wound care, follow cultures -- Physical debility Current Visit: Yes Status: Acute Plan to address problem: Physical therapy occupational therapy rehabilitation Viviane planning. Case management possible --CODE STATUS full code; Monitor closely and adjust management as needed Disposition; follow neuro workup, follow neurology evaluation Discharge when medically stable History Interval history: Patient seen and examined medical records reviewed Patient is lethargic and altered, cachectic and malnourished Noncommunicative Vital signs noted Neuro workup is in progress Hospitalist Physical - Constitutional Vitals: Temp Pulse Resp BP Pulse Ox 98.3 F 92 H 18 135/81 98 05/13/19 04:49 05/13/19 08:51 05/13/19 08:51 05/13/19 04:48 05/13/19 08:52 General appearance: Present: no acute distress, cachectic, disheveled, other (noncommunicative) - EENT Eyes: Present: PERRL ENT: other (infected wound and ulcers upper lip) - Neck Neck: Present: supple, normal ROM - Respiratory Respiratory effort: normal Respiratory: bilateral: diminished, rhonchi, negative: rales, wheezing - Cardiovascular Rhythm: regular Heart Sounds: Present: S1 & S2 - Extremities Extremities: no ischemia, No edema - Abdominal General gastrointestinal: soft, non-tender, non-distended, normal bowel sounds - Integumentary Integumentary: Present: clear, warm - Psychiatric Psychiatric: other (noncommunicative) - Neurologic Neurologic: other (noncommunicative) Results - Labs CBC & Chem 7: 05/13/19 05:39 05/13/19 05:39 Labs: Laboratory Last Values WBC 11.7 K/mm3 (4.5-11.0) H 05/13/19 05:39 RBC 3.12 M/mm3 (3.65-5.03) L 05/13/19 05:39 Hgb 9.5 gm/dl (11.8-15.2) L 05/13/19 05:39 Hct 28.0 % (35.5-45.6) L 05/13/19 05:39 MCV 90 fl (84-94) 05/13/19 05:39 MCH 31 pg (28-32) 05/13/19 05:39 MCHC 34 % (32-34) 05/13/19 05:39 RDW 14.2 % (13.2-15.2) 05/13/19 05:39 Plt Count 323 K/mm3 (140-440) 05/13/19 05:39 Lymph % (Auto) 8.9 % (13.4-35.0) L 05/13/19 05:39 Ray % (Auto) 9.6 % (0.0-7.3) H 05/13/19 05:39 Eos % (Auto) 0.1 % (0.0-4.3) 05/13/19 05:39 Baso % (Auto) 0.1 % (0.0-1.8) 05/13/19 05:39 Lymph # 1.0 K/mm3 (1.2-5.4) L 05/13/19 05:39 Ray # 1.1 K/mm3 (0.0-0.8) H 05/13/19 05:39 Eos # 0.0 K/mm3 (0.0-0.4) 05/13/19 05:39 Baso # 0.0 K/mm3 (0.0-0.1) 05/13/19 05:39 Seg Neutrophils % 81.3 % (40.0-70.0) H 05/13/19 05:39 Seg Neutrophils # 9.5 K/mm3 (1.8-7.7) H 05/13/19 05:39 PT 14.4 Sec. (12.2-14.9) 05/11/19 01:34 INR 1.15 (0.87-1.13) H 05/11/19 01:34 APTT 35.5 Sec. (24.2-36.6) 05/11/19 01:34 15.5 Sec. (15.1-19.6) 05/11/19 01:34 Sodium 139 mmol/L (137-145) D 05/13/19 05:39 Potassium 3.4 mmol/L (3.6-5.0) L D 05/13/19 05:39 Chloride 104.0 mmol/L (98-107) 05/13/19 05:39 Carbon Dioxide 26 mmol/L (22-30) 05/13/19 05:39 12 mmol/L 05/13/19 05:39 BUN 13 mg/dL (9-20) 05/13/19 05:39 0.9 mg/dL (0.8-1.5) 05/13/19 05:39 Estimated GFR > 60 ml/min 05/13/19 05:39 14 % 05/13/19 05:39 Glucose 95 mg/dL (75-100) 05/13/19 05:39 POC Glucose 132 (70-105) H 05/11/19 07:58 Lactic Acid 1.20 mmol/L (0.7-2.0) 05/11/19 12:50 Calcium 8.0 mg/dL (8.4-10.2) L 05/13/19 05:39 Magnesium 2.00 mg/dL (1.7-2.3) 05/11/19 01:34 149 units/L (55-170) 05/11/19 01:34 < 0.010 ng/mL (0.00-0.029) 05/11/19 01:34 TSH 22.300 mlU/mL (0.270-4.200) H 05/11/19 06:44 Free T4 0.88 ng/dL (0.76-1.46) 05/11/19 03:18 Yellow (Yellow) 05/11/19 01:30 Clear (Clear) 05/11/19 01:30 5.0 (5.0-7.0) 05/11/19 01:30 Ur Specific [place] 1.014 (1.003-1.030) 05/11/19 01:30 <15 mg/dl mg/dL (Negative) 05/11/19 01:30 Neg mg/dL (Negative) 05/11/19 01:30 Neg mg/dL (Negative) 05/11/19 01:30 Neg (Negative) 05/11/19 01:30 Neg (Negative) 05/11/19 01:30 Neg (Negative) 05/11/19 01:30 < 2.0 mg/dL (<2.0) 05/11/19 01:30 Ur Leukocyte Esterase Neg (Negative) 05/11/19 01:30 1.0 /HPF (0.0-6.0) 05/11/19 01:30 < 1.0 /HPF (0.0-6.0) 05/11/19 01:30 Few /HPF 05/11/19 01:30 Clear 05/11/19 03:15 Colorless 05/11/19 03:15 0 /mm3 (1-10) 05/11/19 03:15 0 /mm3 (0-0) 05/11/19 03:15 CSF Seg Neutrophils 0 % (0-6) 05/11/19 03:15 0 % (40-80) 05/11/19 03:15 CSF Reactive Lymphs 0 % 05/11/19 03:15 0 % (15-45) 05/11/19 03:15 0 % 05/11/19 03:15 0 % 05/11/19 03:15 No cells seen 05/11/19 03:15 C 05/11/19 03:15 84 mg/dL 05/11/19 03:15 14 mg/dL 05/11/19 03:15 Salicylates < 0.3 mg/dL (2.8-20.0) L 05/11/19 01:34 Acetaminophen < 5.0 ug/mL (10.0-30.0) L 05/11/19 01:34 Active Medications - Current Medications Current Medications: Generic Name Dose Route Start Last Admin Trade Name Freq PRN Reason Stop Dose Admin Acetaminophen/Hydrocodone Bitart 1 each 05/12/19 09:03 05/13/19 05:58 [place] 5/325 PO 1 each Q6H PRN Administration Pain, Moderate (4-6) Albuterol 2.5 mg 05/11/19 23:32 05/12/19 00:48 Proventil IH 2.5 mg Q4HRT PRN Administration Shortness Of Breath Albuterol/Ipratropium 1 ampul 05/12/19 08:00 05/13/19 08:32 Duoneb *Not For Prn Use* IH 1 ampul TIDRT KAMI Administration Sodium Chloride 1,000 mls @ 125 mls/hr 05/11/19 06:00 05/13/19 02:47 Nacl 0.9% 1000 Ml IV Infused DIRECT KAMI Infusion Ceftriaxone Sodium 1 gm in 50 mls @ 100 mls/hr 05/12/19 02:00 05/13/19 05:49 Rocephin/Ns 1 Gm/50 Ml IV Infused Q24H KAMI Infusion Protocol Levothyroxine Sodium 150 mcg/ 175 mcg 05/14/19 06:00 Levothyroxine Sodium 25 mcg PO DAILY@0600 PENDING SALE TO [facility] Nutrition/Malnutrition Assess - Dietary Evaluation Nutrition/Malnutrition Findings: Nutrition Notes Start: 05/11/19 15:09 Freq: Status: Active Protocol: Document 05/11/19 15:09 KIARA (Rec: 05/11/19 15:19 [facility] SR[facility]- [id number]) Nutrition Notes Need for Assessment generated from: retail receiving clerk,MST Initial or Follow up Assessment Current Diagnosis COPD,Sepsis Other Pertinent Diagnosis Cellulitis of lips, AMS Current Diet No diet ordered Labs/Tests TSH 22.3 K 5.4 Na 131 Pertinent Medications NS at 125ml/hr Height 5 ft 4 in Weight 42.003 kg Usual Body Weight 45.45 kg [place] Body Weight (kg) 59.09 BMI 15.9 Intake Prior to Admission Poor Weight change and time frame Pt with 7.6% unintentional wt loss (unsure of time frame) Weight Status Underweight Subjective/Other Information Pt screened for malnutrition risk (wt loss, poor appetite) and skin risk (Levi score unavailable). Pt is s/p I&D of lip abscess. Per pt's daughter, pt has not been eating, talking or walking. She says pt has always been skinny and usually has a " pretty good appetite". Pt sounds congested; says he does not want Ensure. Pt receives ONS from [facility] as well. Pt may benefit from swallow eval before diet advancement. Burn Absent Trauma Absent Current % PO Negligible Energy Intake (severe) < or equal to 50% Estimated Energy Requirement > or equal to 5 days Body Fat Depletion Moderate depletion (severe) Muscle Mass Moderate Depletion (severe) #1 Nutrition Diagnosis Malnutrition Etiology illness As Evidenced by Signs and Symptoms decreased PO intake, unintentional wt loss, BMI 15. 9, subcutaneous fat loss, muscle wasting Is patient on ventilator? No Is Patient Ambulatory and/or Out of Bed No REE-([place]-confined to bed) 1262.316 Kcal/Kg value to use for calculation 40 Approximate Energy Requirements Using 1680 kcal/Kg Calculation Used for Recommendations Kcal/kg Additional Notes Pro needs 1.2-1.5g/k-63g/ day Fluid needs 1ml/kcal Nutrition Intervention Change Diet Order: Advance diet when medically feasible (recommend mech soft with chopped meats) Goal #1 Diet advancement to meet nutrient needs Goal #2 Wt maintenance and/or gain Anticipated Discharge Needs: Pt will benefit from ONS 2-3 times daily Follow-Up By: 05/13/19 Additional Comments F/U: diet advancement
[2019-05-13] MEDS: SYNTHROID PO SCH ×2 (18:00)
[2019-05-13] MEDS: NACL 0.9% 1000 ML 1,000 ML IV SCH (18:00)
[2019-05-13] MEDS: PROTONIX PO SCH (21:34)
[2019-05-13] MEDS: COLACE PO SCH (21:34)
[2019-05-13] MEDS: CLEOCIN 600 MG/50 mL 600 MG/50 ML BAG IV SCH (21:35)
[2019-05-13] MEDS ORDERED: NON-FORMULARY (Simvastatin [Simvastatin] 20 MG) PO SCH (22:00)
[2019-05-13] MEDS ORDERED: PRAVACHOL PO SCH (22:00)
[2019-05-13] MEDS ORDERED: PROTONIX PO SCH (22:00)
[2019-05-14] MEDS: NORCO 5/325 PO PRN ×2 (03:41→10:09)
[2019-05-14 05:42] LABS: Basophils % (Auto) 0.2 % (0.0-1.8); Eosinophils % (Auto) 0.2 % (0.0-4.3); Hematocrit 29.1 % (35.5-45.6); Hemoglobin 9.7 gm/dl (11.8-15.2); Lymphocytes # (Auto) 0.9 K/mm3 (1.2-5.4); Mean Corpuscular HGB Conc 33 % (32-34); Mean Corpuscular Volume 91 fl (84-94); Monocytes # (Auto) 0.9 K/mm3 (0.0-0.8); Monocytes % (Auto) 11.6 % (0.0-7.3); Platelet Count 338 K/mm3 (140-440); Red Blood Count 3.19 M/mm3 (3.65-5.03); Red Cell Distribution Width 14.2 % (13.2-15.2)
[2019-05-14] MEDS ORDERED: SYNTHROID PO SCH ×2 (06:00)
[2019-05-14] MEDS ORDERED: SYNTHROID 150 MCG, SYNTHROID 25 MCG PO SCH (06:00)
[2019-05-14 06:14] LABS: Alanine Aminotransferase 30 units/L (7-56); Albumin 2.8 g/dL (3.9-5); BUN/Creatinine Ratio 13; Blood Urea Nitrogen 12 mg/dL (9-20); Calcium 8.8 mg/dL (8.4-10.2); Hemolysis Index 10
[2019-05-14] MEDS: NACL 0.9% 1000 ML 1,000 ML IV SCH ×2 (06:25→21:52)
[2019-05-14] MEDS: CLEOCIN 600 MG/50 mL 600 MG/50 ML BAG IV SCH ×3 (06:26→21:52)
[2019-05-14] MEDS: SYNTHROID PO SCH ×2 (06:26)
[2019-05-14] MEDS: DUONEB *Not for PRN Use IH SCH ×3 (08:19→20:26)
[2019-05-14] MEDS ORDERED: TIOTROPIUM BROMIDE PO SCH (10:00)
[2019-05-14] MEDS: COLACE PO SCH ×2 (10:08→21:52)
[2019-05-14] MEDS: ECOTRIN PO SCH (10:08)
[2019-05-14] MEDS: PROTONIX PO SCH ×2 (10:08→21:52)
[2019-05-14] MEDS: FLOMAX PO SCH (10:09)
[2019-05-14] MEDS: PROSCAR PO SCH (10:09)
--- NOTE | 2019-05-14 15:26 | Progress Note ---
Assessment and Plan / Acute metabolic encephalopathy Multifactorial, likely from hypothyroidism, Sepsis, malnutrition, advanced age and dementia Continue supportive care, follow neuro workup and neurology recommendations treat the underlying cause /Possible CVA ;ruled out Aspirin and statin, Neurology consulted, MRI w/o any acute ischemia/infract /-Meningioma on MRI; Supportive care, neurology consult /-Hypothyroidism; Patient received IV Synthroid Start oral Synthroid, patient may need to see web pressman upon discharge Consider thyroid scan if needed as outpt / Severe Malnutrition; BMI 17.7 Subsequent dietitian consult for severe protein deficiency malnutrition. Patient remains cachectic. has good oral intake now /Acute COPD exacerbation; Oxygen titrated O2 sats more than 90%, nebulizers, IV steroids Supportive care /Sepsis with upper lip abscess cont clindamycin, wound care, follow cultures / Physical debility Physical therapy occupational therapy consulted --CODE STATUS full code; Monitor closely and adjust management as needed Disposition; follow neurology evaluation Discharge when medically stable when clears by PT Hospitalist Physical General appearance: Present: no acute distress, cachectic, disheveled, - EENT Eyes: Present: PERRL ENT: other (infected wound and ulcers upper lip) - Neck Neck: Present: supple, normal ROM - Respiratory Respiratory effort: normal Respiratory: bilateral: diminished, rhonchi, negative: rales, wheezing - Cardiovascular Rhythm: regular Heart Sounds: Present: S1 & S2 - Extremities Extremities: no ischemia, No edema - Abdominal General gastrointestinal: soft, non-tender, non-distended, normal bowel sounds - Integumentary Integumentary: Present: clear, warm - Psychiatric Psychiatric: co-operative - Neurologic Neurologic: follows commend, no focal deficit Subjective Date of service: 05/14/19 Interval history: Patient seen and examined No acute event O/N tolerating diet, mental status at baseline, follows commend Objective - Constitutional Vitals: Vital Signs - 12hr 05/14/19 05/14/19 05/14/19 03:41 05:40 06:59 Temperature 97.9 F Pulse Rate 110 H 84 Pulse Rate [ Anterior Bilateral Throughout] Respiratory 20 24 Rate Respiratory Rate [Abdomen] Respiratory Rate [Anterior Bilateral Throughout] Respiratory Rate [Oral] Blood Pressure 182/99 Blood Pressure 155/89 [Left] O2 Sat by Pulse 98 Oximetry 05/14/19 05/14/19 05/14/19 08:22 08:32 10:00 Temperature Pulse Rate Pulse Rate [ 93 H Anterior Bilateral Throughout] Respiratory Rate Respiratory 22 Rate [Abdomen] Respiratory 18 Rate [Anterior Bilateral Throughout] Respiratory 20 Rate [Oral] Blood Pressure Blood Pressure [Left] O2 Sat by Pulse 99 Oximetry 05/14/19 05/14/19 10:09 11:52 Temperature 97.6 F Pulse Rate 93 H Pulse Rate [ Anterior Bilateral Throughout] Respiratory 20 24 Rate Respiratory Rate [Abdomen] Respiratory Rate [Anterior Bilateral Throughout] Respiratory Rate [Oral] Blood Pressure 151/87 Blood Pressure [Left] O2 Sat by Pulse 100 Oximetry - Labs CBC & Chem 7: 05/14/19 05:25 05/14/19 05:25 Labs: Abnormal lab results 05/14/19 05/14/19 Range/Units 05:25 05:25 RBC 3.19 L (3.65-5.03) M/mm3 Hgb 9.7 L (11.8-15.2) gm/dl Hct 29.1 L (35.5-45.6) % Lymph % (Auto) 12.0 L (13.4-35.0) % [place] % (Auto) 11.6 H (0.0-7.3) % Lymph # 0.9 L (1.2-5.4) K/mm3 [place] # 0.9 H (0.0-0.8) K/mm3 Seg Neutrophils % 76.0 H (40.0-70.0) % Glucose 104 H (75-100) mg/dL Albumin 2.8 L (3.9-5) g/dL
--- NOTE | 2019-05-14 18:28 | Progress Note ---
Assessment and Plan Metabolic encephalopathy- resolved Meningioma Recommend: Continue care for his infectious, metabolic issues as you are doing, encephalopathy has resolved Follow up with neurosurgery outpatient for meningioma, nothing to do urgently. POC discussed with pt and family at bedside. Subjective Date of service: 05/14/19 Interval history: Pt is continuing to improve. At baseline per family at bedside. AOx4. Seen by teleneuro on admission. Objective - Vital Sign Vital Signs - 12hr 05/14/19 05/14/19 05/14/19 06:59 08:22 08:32 Temperature Pulse Rate 84 Pulse Rate [ 93 H Anterior Bilateral Throughout] Respiratory Rate Respiratory Rate [Abdomen] Respiratory 18 Rate [Anterior Bilateral Throughout] Respiratory Rate [Oral] Blood Pressure Blood Pressure 155/89 [Left] O2 Sat by Pulse 99 Oximetry 05/14/19 05/14/19 05/14/19 10:00 10:09 11:52 Temperature 97.6 F Pulse Rate 93 H Pulse Rate [ Anterior Bilateral Throughout] Respiratory 20 24 Rate Respiratory 22 Rate [Abdomen] Respiratory Rate [Anterior Bilateral Throughout] Respiratory 20 Rate [Oral] Blood Pressure 151/87 Blood Pressure [Left] O2 Sat by Pulse 100 Oximetry 05/14/19 16:28 Temperature 97.9 F Pulse Rate 125 H Pulse Rate [ Anterior Bilateral Throughout] Respiratory 22 Rate Respiratory Rate [Abdomen] Respiratory Rate [Anterior Bilateral Throughout] Respiratory Rate [Oral] Blood Pressure 186/93 Blood Pressure [Left] O2 Sat by Pulse 99 Oximetry - General Apperance Constitutional: comfortable - EENT EENT: mucous membranes moist - Respiratory Respiratory: lungs clear - Cardiovascular Cardiovascular: regular rate - Gastrointestinal Gastrointestinal: normoactive bowel sounds - Neurologic Cranial nerve examination: PERRL, EOMI, V1/V2/V3 grossly intact, face symmetric, tongue midline Motor examination - right side: 4/5: biceps, triceps, wrist flexion, wrist extension, emd special education teacher, hip flexors, knee extensors, dorsiflexion, toe extension (EHL), plantarflexion Motor examination - left side: 4/5: biceps, triceps, wrist flexion, wrist extension, emd special education teacher, hip flexors, knee extensors, dorsiflexion, toe extension (EHL), plantarflexion Reflexes: 0: ankle, bicep, knee, tricep - Laboratory Findings CBC and BMP: 05/14/19 05:25 05/14/19 05:25 Abnormal Lab Findings: Abnormal Labs 05/11/19 05/11/19 05/11/19 01:00 01:34 01:34 WBC 18.1 H RBC 3.52 L Hgb 10.5 L Hct 32.1 L Lymph % (Auto) 5.1 L [place] % (Auto) 12.3 H Lymph # 0.9 L [place] # 2.2 H Seg Neutrophils % 82.5 H Seg Neutrophils # 15.0 H INR 1.15 H Sodium Potassium Chloride Carbon Dioxide BUN Glucose POC Glucose 122 H Lactic Acid Calcium Albumin TSH Salicylates Acetaminophen 05/11/19 05/11/19 05/11/19 01:34 01:34 01:34 WBC RBC Hgb Hct Lymph % (Auto) [place] % (Auto) Lymph # [place] # Seg Neutrophils % Seg Neutrophils # INR Sodium 131 L Potassium 5.4 H D Chloride 89.1 L Carbon Dioxide 31 H BUN 23 H Glucose 120 H POC Glucose Lactic Acid Calcium Albumin TSH 29.090 H Salicylates < 0.3 L Acetaminophen 05/11/19 05/11/19 05/11/19 01:34 03:18 06:44 WBC RBC Hgb Hct Lymph % (Auto) [place] % (Auto) Lymph # [place] # Seg Neutrophils % Seg Neutrophils # INR Sodium Potassium Chloride Carbon Dioxide BUN Glucose POC Glucose Lactic Acid 2.20 H* Calcium Albumin TSH 22.300 H Salicylates Acetaminophen < 5.0 L 05/11/19 05/13/19 05/13/19 07:58 05:39 05:39 WBC 11.7 H RBC 3.12 L Hgb 9.5 L Hct 28.0 L Lymph % (Auto) 8.9 L [place] % (Auto) 9.6 H Lymph # 1.0 L [place] # 1.1 H Seg Neutrophils % 81.3 H Seg Neutrophils # 9.5 H INR Sodium Potassium 3.4 L D Chloride Carbon Dioxide BUN Glucose POC Glucose 132 H Lactic Acid Calcium 8.0 L Albumin TSH Salicylates Acetaminophen 05/14/19 05/14/19 05:25 05:25 WBC RBC 3.19 L Hgb 9.7 L Hct 29.1 L Lymph % (Auto) 12.0 L [place] % (Auto) 11.6 H Lymph # 0.9 L [place] # 0.9 H Seg Neutrophils % 76.0 H Seg Neutrophils # INR Sodium Potassium Chloride Carbon Dioxide BUN Glucose 104 H POC Glucose Lactic Acid Calcium Albumin 2.8 L TSH Salicylates Acetaminophen - Diagnostic Findings Additional findings: MRI Brain nothing acute, meningioma
[2019-05-15] MEDS: SYNTHROID PO SCH ×2 (06:27)
[2019-05-15] MEDS: CLEOCIN 600 MG/50 mL 600 MG/50 ML BAG IV SCH ×2 (06:27→14:10)
[2019-05-15] MEDS: DUONEB *Not for PRN Use IH SCH ×2 (07:23→14:22)
[2019-05-15] MEDS: ECOTRIN PO SCH (09:48)
[2019-05-15] MEDS: FLOMAX PO SCH (09:48)
[2019-05-15] MEDS: COLACE PO SCH (09:48)
[2019-05-15] MEDS: PROSCAR PO SCH (09:49)
[2019-05-15] MEDS: NACL 0.9% 1000 ML 1,000 ML IV SCH (09:49)
[2019-05-15] MEDS: PROTONIX PO SCH (09:49)
--- NOTE | 2019-05-15 12:39 | Discharge Summary ---
Providers - Providers Date of Admission: 05/11/19 06:17 Date of discharge: 05/22/19 Attending physician: PARAG SMITH 05/11/19 01:05 Consult to Physician [CONS] Urgent Comment: Consulting Provider: SERA WOODS Physician Instructions: Reason For Exam: ams speech derangement 05/11/19 03:30 Speech Therapy Evaluation and Treat [CONS] Routine Reason For Exam: unable to swallow 05/11/19 05:54 Physical Therapy Evaluation and Treat [CONS] Routine Comment: Reason For Exam: WEAKNESS DUE TO POSSIBLE CVA 05/11/19 20:46 Consult to Wound/ET Nurse [CONS] Routine Reason For Exam: wound eval packing from lip 05/13/19 18:40 Consult to Physician [CONS] Routine Comment: Consulting Provider: CHINEDU VELARDE Physician Instructions: Reason For Exam: CVA /Meningioma [facility] Condition: Fair Hospital course: Discharge diagnosis: -- Acute metabolic encephalopathy Multifactorial, CVA-like symptoms, hypothyroidism Neuro workup is in progress, SIRS, malnutrition, advanced age and dementia Continue supportive care, follow neuro workup and neurology recommendations The underlying cause --Possible CVA ;workup in progress Aspirin and statin Neurology consult, follow neuro workup Physical therapy occupational therapy and speech therapy. --Meningioma on MRI; Supportive care, neurology consult --Hypothyroidism; Patient received IV Synthroid Start oral Synthroid, patient may need to see chief reservoir engineering upon discharge Consider thyroid scan if needed -- Severe Malnutrition; BMI 17.7 Current Visit: Yes Status: Acute Plan to address problem: Subsequent dietitian consult for severe protein deficiency malnutrition. Patient remains cachectic. Consider Megace if needed --SIRS (systemic inflammatory response syndrome) Current Visit: Yes Status: Acute Plan to address problem: Empiric antibiotic coverage no evidence of infection can DC antibiotics. --Acute COPD exacerbation; Current Visit: No Status: Acute Plan to address problem: Oxygen titrated O2 sats more than 90%, nebulizers, IV steroids Supportive care --Sepsis/ Lip wound Current Visit: No Status: Acute Plan to address problem: clindamycin, wound care, follow cultures -- Physical debility Current Visit: Yes Status: Acute Plan to address problem: Physical therapy occupational therapy rehabilitation Viviane planning. Case management possible Disposition: DC/[place]-06 HOME UNDER HOME [facility] Time spent for discharge: 34 minutes Core Measure Documentation - Palliative Care Palliative Care/ Comfort Measures: Not Applicable - Core Measures Any of the following diagnoses?: none Exam - Constitutional Vitals: Temp Pulse Resp BP Pulse Ox 97.9 F 92 H 18 159/77 100 05/15/19 05:50 05/15/19 07:34 05/15/19 07:34 05/15/19 05:50 05/15/19 07:27 Plan Activity: fall precautions Weight Bearing Status: Non-Weight Bearing Diet: low fat, low salt Follow up with: RUDDY AGUDELO MD [Primary Care Provider] - 3-5 Days JOSIAS GAONA MD [Staff Physician] - 7 Days Prescriptions: Clindamycin [Clindamycin CAP] 600 mg PO BID #10 capsule Levothyroxine [Synthroid] 100 mcg PO DAILY@0600 #30 tablet Levothyroxine [Synthroid] 75 mcg PO DAILY@0600 #30 tablet
[2019-05-15] MEDS: NORCO 5/325 PO PRN (14:10)
[2019-05-15 16:06] VITALS: BP 165/78
== END 2019-05-15 19:20 | disposition home health service (06) | DRG 871 ==
LOC: ED 00:44 → 3A 06:17
PROVIDERS: ADMIT Internal Medicine; ATTEND Internal Medicine
PROC: 009U3ZX Drainage of Spinal Canal, Percutaneous Approach, Diagnostic (ICD-10-PCS; principal; 2019-05-11)
DX: A41.9 Sepsis, unspecified organism (principal); G93.41 Metabolic encephalopathy; E43 Unspecified severe protein-calorie malnutrition; J44.1 Chronic obstructive pulmonary disease with (acute) exacerbation; Z68.1 Body mass index [BMI] 19.9 or less, adult; F03.90 Unspecified dementia, unspecified severity, without behavioral disturbance, psychotic disturbance, mood disturbance, and anxiety; D32.9 Benign neoplasm of meninges, unspecified; F17.210 Nicotine dependence, cigarettes, uncomplicated; E02 Subclinical iodine-deficiency hypothyroidism; S01.501A Unspecified open wound of lip, initial encounter; K13.0 Diseases of lips; R53.81 Other malaise; Y93.89 Activity, other specified; Y92.89 Other specified places as the place of occurrence of the external cause; Y99.8 Other external cause status; Z79.82 Long term (current) use of aspirin; Z79.899 Other long term (current) drug therapy; Z72.89 Other problems related to lifestyle
CPT/HCPCS: 36415; 70450; 70496; 70498; 70551; 71045; 80048; 80053; 80320; 81001; 82140; 82550; 82947; 82962; 83735; 84160; 84439; 84443; 84484; 85025; 85610; 85670; 85730; 87040; 87086; 87116; 89051; 93005; 93010; 93306; 93880; 94640; 94760; 96365; G0378; G0480; J0133; J0696; J1100; J1956; J3246; J3370; J7030; J7040; Q9967

== ENCOUNTER 2021-07-11 13:40 | Inpatient (IN) | payer OTHER, MEDICARE ==
[2021-07-11] MEDS ORDERED: SODIUM CHLORIDE 0.9% 1000 ML 1,000 ML ONE (13:44)
--- NOTE | 2021-07-11 13:48 | Emergency Department Report ---
ED CPR HPI - General Stated Complaint: CARDIAC ARREST Time Seen by Provider: 07/11/21 13:43 - History of Present Illness Initial Comments: Patient was brought in by EMS in cardiac arrest. History is obtained from them. Patient is intubated and cannot provide any cogent history. They report that the patient was last seen at 7 AM. He complained of fatigue. A family member had taken a nap. They found him approximately 30 minutes prior to arrival. Patient was in cardiac arrest at that time. During their intervention, EMS is administered multiple doses of epinephrine, done CPR multiple times, had intermittent ROSC, and started an epinephrine drip. Upon arrival, they were doing CPR. When the patient was moved over to our bed, he has a pulse. Patient was intubated with a 6-0 ET tube. They were bagging the patient. They were aware of a past history of COPD. - Related Data Home Medications Medication Instructions Recorded Confirmed Last Taken Finasteride [Proscar] 5 mg PO QDAY 06/07/16 05/11/19 05/09/19 5 mg Adults Multivitamin Tablet 1 tab PO DAILY 05/11/19 05/11/19 05/09/19 1 tablet Aspirin EC [Ecotrin] 325 mg PO QDAY 05/11/19 05/11/19 05/09/19 325 mg Cholecalciferol (Vitamin D3) 1,000 units PO DAILY 05/11/19 05/11/19 05/09/19 1000 units Docusate Sodium [Colace CAP] 100 mg PO BID 05/11/19 05/11/19 05/09/19 100 mg Sennosides Tab [Senokot] 8.6 mg PO BID PRN 05/11/19 05/11/19 05/09/19 8.6 mg Simvastatin 20 mg PO HS 05/11/19 05/11/19 05/09/19 20 mg Tamsulosin [Flomax] 2 cap PO DAILY 05/11/19 05/11/19 05/09/19 20 mg Tiotropium [place] [Spiriva 2.5 inh PO DAILY 05/11/19 05/11/19 05/09/19 Respimat] 2.5 MCG Previous Rx's Medication Instructions Recorded Last Taken Type Clindamycin [Clindamycin CAP] 600 mg PO BID #10 capsule 05/15/19 Unknown Rx Levothyroxine [Synthroid] 75 mcg PO DAILY@0600 #30 tablet 05/15/19 Unknown Rx Levothyroxine [Synthroid] 100 mcg PO DAILY@0600 #30 tablet 05/15/19 Unknown Rx Pantoprazole [Protonix TAB] 40 mg PO BID #60 05/15/19 05/09/19 Rx 40 mg Allergies Allergy/AdvReac Type Severity Reaction Status Date / Time No Known Allergies Allergy Verified 04/14/17 12:54 ED Review of Systems ROS: Stated complaint: CARDIAC ARREST Other details as noted in HPI Comment: Unobtainable due to pts medical conditions (Cardiac arrest and intubation) ED Past Medical Hx - Past Medical History Hx Hypertension: Yes Hx COPD: Yes Hx HIV: No Additional medical history: enlarged prostate. cannot be obtained for the patient secondary to cardiac arrest and intubation - Surgical History Additional Surgical History: ulcer surgery. cannot be obtained for the patient secondary to cardiac arrest and intubation - Family History Family history: other (cannot be obtained from the patient secondary to cardiac arrest and intubation) - Social History Smoking Status: Former Smoker Substance Use Type: Alcohol - Medications Home Medications: Home Medications Medication Instructions Recorded Confirmed Last Taken Type Finasteride [Proscar] 5 mg PO QDAY 06/07/16 05/11/19 05/09/19 History 5 mg Adults Multivitamin Tablet 1 tab PO DAILY 05/11/19 05/11/19 05/09/19 History 1 tablet Aspirin EC [Ecotrin] 325 mg PO QDAY 05/11/19 05/11/19 05/09/19 History 325 mg Cholecalciferol (Vitamin D3) 1,000 units PO DAILY 05/11/19 05/11/19 05/09/19 History 1000 units Docusate Sodium [Colace CAP] 100 mg PO BID 05/11/19 05/11/19 05/09/19 History 100 mg Sennosides Tab [Senokot] 8.6 mg PO BID PRN 05/11/19 05/11/19 05/09/19 History 8.6 mg Simvastatin 20 mg PO HS 05/11/19 05/11/19 05/09/19 History 20 mg Tamsulosin [Flomax] 2 cap PO DAILY 05/11/19 05/11/19 05/09/19 History 20 mg Tiotropium [place] [Spiriva 2.5 inh PO DAILY 05/11/19 05/11/19 05/09/19 History Respimat] 2.5 MCG Clindamycin [Clindamycin CAP] 600 mg PO BID #10 capsule 05/15/19 Unknown Rx Levothyroxine [Synthroid] 75 mcg PO DAILY@0600 #30 tablet 05/15/19 Unknown Rx Levothyroxine [Synthroid] 100 mcg PO DAILY@0600 #30 tablet 05/15/19 Unknown Rx Pantoprazole [Protonix TAB] 40 mg PO BID #60 05/15/19 05/11/19 05/09/19 Rx 40 mg ED Physical Exam - General Limitations: Physical Limitation ( intubation and cardiac arrest) General appearance: cachectic, other ( emaciated and frail. Bag ventilation is in progress.) - Head Head exam: Present: atraumatic, normal inspection - Eye Eye exam: Present: other ( Conjugate gaze). Absent: scleral icterus, conjunctival injection - ENT ENT exam: Present: other ( orotracheal tube is in place.) - Neck Neck exam: Present: other ( Trachea is midline. No crepitus) - Respiratory Respiratory exam: Present: normal lung sounds bilaterally ( with back ventilation), other ( occasional spontaneous respiration) - Cardiovascular Cardiovascular Exam: Present: tachycardia - GI/Abdominal GI/Abdominal exam: Present: soft. Absent: distended - Extremities Exam Extremities exam: Present: other ( cool extremities with delayed capillary refill. There is no muscle mass) - Back Exam Back exam: Present: normal inspection - Neurological Exam Neurological exam: Present: other ( GCS is 3T) - Skin Skin exam: Present: other ( cool to touch) ED Course Vital Signs 07/11/21 14:05 Pulse Rate 110 H Blood Pressure 77/43 O2 Sat by Pulse 95 Oximetry - Reevaluation(s) Reevaluation #1: 07/11/21 13:47 EMS was met upon arrival. Patient has a palpable pulse. CPR was stopped. Patient was placed on a ventilator. Labs have been ordered. Family will be n otified upon arrival. Reevaluation #2: 07/11/21 15:58 Labs have been noted. D50 has been ordered. Hydration has been ordered. Albuterol continuous neb was ordered for hyperkalemia. I have had a discussion with the daughter. She would not want further CPR. She does not want the patient extubated as of yet however. We will proceed with admission. ED Medical Decision Making - Lab Data Result diagrams: 07/11/21 14:45 07/11/21 14:45 Rhythm strip: Sinus tachycardia with occasional ectopy. Monitor observed in seconds. - Medical Decision Making Patient presents by EMS with cardiac arrest. He did have return of spontaneous circulation. He ultimately was found to be hypoglycemic. He was found to have an acute kidney injury. He has been given fluids. We have maintained him on an epinephrine drip. Patient has been given D50 in addition. I have had a discussion with the daughter. She does not want the patient to be comfort measures only. She does not want him extubated yet. However, she does acknowledge the fact that he would not want CPR and does not believe that he would want to be kept alive by ventilator. We will admit for ongoing treatment and management. Critical Care Time: Yes Critical care attestation.: If time is entered above; I have spent that time in minutes in the direct care of this critically ill patient, excluding procedure time. Critical Care Time: Critical care time of 60 minutes exclusive of all procedures. ED Disposition Clinical Impression: Cardiac arrest, Hypoglycemia, Acute kidney injury, Debility Disposition: 09 ADMITTED INPATIENT Is pt being admited?: Yes Condition: Critical
[2021-07-11] MEDS ORDERED: EPINEPHrine 1 MG/1 ML 8 MG in SODIUM CHLORIDE 0.9% 250ML 242 ML IV ONE (14:30)
[2021-07-11 15:19] LABS: Hematocrit 25.4 % (35.5-45.6); Mean Corpuscular HGB Conc 32 % (32-34); Mean Corpuscular Volume 98 fl (84-94); Platelet Count 381 K/mm3 (140-440); Red Blood Count 2.59 M/mm3 (3.65-5.03); Red Cell Distribution Width 14.3 % (13.2-15.2)
[2021-07-11 15:38] LABS: Calcium 9.4 mg/dL (8.4-10.2)
[2021-07-11] MEDS ORDERED: DEXTROSE 50% IN WATER (25GM) 50 ML SYRINGE IV ONE ×2 (15:51→15:52)
[2021-07-11] MEDS ORDERED: ALBUTEROL 2.5 MG/3 ML NEBU IH ONE (15:51)
[2021-07-11] MEDS ORDERED: SODIUM CHLORIDE 0.9% 1000 ML 1,000 ML IV ONE (15:51)
--- NOTE | 2021-07-11 16:25 | XRay Report ---
CHEST 1 VIEW 07/11/2021 2:17 PM INDICATION / CLINICAL INFORMATION: intubation. COMPARISON: 05/11/2019 FINDINGS: SUPPORT DEVICES: Endotracheal tube is in good position terminating approximately 4 cm above donis. HEART / MEDIASTINUM: No significant abnormality. LUNGS / PLEURA: Complete consolidation of right upper lobe. No pneumothorax. ADDITIONAL FINDINGS: No significant additional findings. IMPRESSION: 1. Endotracheal tube in expected position. 2. Complete consolidation of right upper lobe concerning for mass. Recommend correlation with prior i maging or dedicated chest CT. Signer Name: Alejo Mayes MD Signed: 07/11/2021 4:21 PM Workstation Name: [id number]
[2021-07-11] MEDS ORDERED: GLYCOPYRROLATE 0.4 MG/2 ML INJ IV PRN (16:49)
[2021-07-11] MEDS ORDERED: MORPHINE 2 MG/1 ML INJ IV PRN ×2 (16:49→17:11)
[2021-07-11] MEDS ORDERED: ACETAMINOPHEN 650 MG RECT SUPP PR PRN ×2 (16:49→17:15)
[2021-07-11] MEDS ORDERED: LORazepam 2 MG/ML VIAL IV PRN ×2 (16:49)
[2021-07-11] MEDS ORDERED: HYDROmorphone 2 MG/1 ML INJ IV ONE (16:50)
[2021-07-11] MEDS ORDERED: LORazepam 2 MG/ML VIAL IV ONE (16:51)
--- NOTE | 2021-07-11 16:52 | History and Physical Report ---
History of Present Illness Chief complaint: Cardiac arrest History of present illness: 80 YO Male with HTN, COPD, Vascular Dementia, Cerebral Atherosclerosis, BPH, Hypothyroidism, PUD presents to ED for evaluation. Patient is intubated and on ventilatory support at the time my evaluation is unable to provide history. Patient history taken by EMS staff, ED staff, as well as the patient daughter who is available and is at bedside at the time of my exam and interview. As per daughter the patient had experienced progressive weakness and increased confusion over the past 1 month with progressively worsening symptoms over the same timeframe. Patient is currently bedbound nonambulatory and unable to conduct activities of daily living. The patient was found unresponsive today by the daughter. EMS was notified and upon arrival the patient was found to be in cardiac arrest. Patient treated in accordance with ACLS protocol with eventual return of perfusing cardiac rhythm. Patient transported to [facility] for further care and evaluation of the aforementioned symptoms. Patient was seen and evaluated in the emergency department. All lab and imaging studies reviewed. Patient found to have cardiac arrest complicated by acute respiratory failure. Patient intubated and placed on ventilatory support. Patient found to have sepsis, QAMAR. Patient admitted to ICU due to increased risk of worsening symptoms and m ultiple organ dysfunction syndrome. Prior admission on 05/11/2019 reviewed. All medication listed at time of admission has been reconciled. Advanced care planning conducted in the emergency department. Patient found to have poor prognosis. Past History Past Medical History: COPD, hypertension, other (See HPI) Past Surgical History: No surgical history, Other (Reviewed) Social history: , lives with family. denies: smoking, prescription drug abuse, IV drug use Family history: diabetes, hypertension Medications and Allergies Allergies Allergy/AdvReac Type Severity Reaction Status Date / Time No Known Allergies Allergy Verified 04/14/17 12:54 Home Medications Medication Instructions Recorded Confirmed Last Taken Type Finasteride [Proscar] 5 mg PO QDAY 06/07/16 05/11/19 05/09/19 History 5 mg Adults Multivitamin Tablet 1 tab PO DAILY 05/11/19 05/11/19 05/09/19 History 1 tablet Aspirin EC [Ecotrin] 325 mg PO QDAY 05/11/19 05/11/19 05/09/19 History 325 mg Cholecalciferol (Vitamin D3) 1,000 units PO DAILY 05/11/19 05/11/19 05/09/19 History 1000 units Docusate Sodium [Colace CAP] 100 mg PO BID 05/11/19 05/11/19 05/09/19 History 100 mg Sennosides Tab [Senokot] 8.6 mg PO BID PRN 05/11/19 05/11/19 05/09/19 History 8.6 mg Simvastatin 20 mg PO HS 05/11/19 05/11/19 05/09/19 History 20 mg Tamsulosin [Flomax] 2 cap PO DAILY 05/11/19 05/11/19 05/09/19 History 20 mg Tiotropium [place] [Spiriva 2.5 inh PO DAILY 05/11/19 05/11/19 05/09/19 History Respimat] 2.5 MCG Clindamycin [Clindamycin CAP] 600 mg PO BID #10 capsule 05/15/19 Unknown Rx Levothyroxine [Synthroid] 75 mcg PO DAILY@0600 #30 tablet 05/15/19 Unknown Rx Levothyroxine [Synthroid] 100 mcg PO DAILY@0600 #30 tablet 05/15/19 Unknown Rx Pantoprazole [Protonix TAB] 40 mg PO BID #60 05/15/19 05/11/19 05/09/19 Rx 40 mg Active Meds: Active Medications Acetaminophen (Acetaminophen 650 Mg Rect Supp) 650 mg RI Q4H PRN PRN Reason: Fever >101 Glycopyrrolate (Glycopyrrolate 0.4 Mg/2 Ml Inj) 0.2 mg IV Q4H PRN PRN Reason: Secretions Hydromorphone HCl (Hydromorphone 2 Mg/1 Ml Inj) 4 mg IV ONCE ONE Stop: 07/11/21 16:51 Epinephrine 8 mg/ Sodium (Chloride) 250 mls @ 3.75 mls/hr IV TITR ONE; Protocol Stop: 07/14/21 09:09 Last Titration: 07/11/21 16:15 Dose: 4 mcg/min, 7.5 mls/hr Documented by: Fentanyl Citrate (Fentanyl Drip Premix) 2,000 mcg in 100 mls @ 0 mls/hr IV TITR KAMI; Protocol Lorazepam (Lorazepam 2 Mg/Ml Vial) 2 mg IV Q1H PRN PRN Reason: anxiety/insomnia Lorazepam (Lorazepam 2 Mg/Ml Vial) 2 mg IV Q1H PRN PRN Reason: Dyspnea Morphine Sulfate (Morphine 2 Mg/1 Ml Inj) 2 mg IV Q30MIN PRN PRN Reason: Dyspnea Review of Systems ROS unobtainable: due to endotracheal tube, due to mental status Exam - Constitutional Vitals: Temp Pulse Resp BP Pulse Ox 110 H 77/43 95 07/11/21 14:05 07/11/21 14:05 07/11/21 14:05 General appearance: Present: severe distress - EENT Eyes: Present: mydriasis ENT: clear oral mucosa, hearing decreased - Neck Neck: Present: supple, normal ROM - Respiratory Respiratory effort: labored, accessory muscle use, stridor Respiratory: bilateral: diminished - Cardiovascular Heart Sounds: Present: S1 & S2. Absent: rub, click - Extremities Extremities: pulses symmetrical, No edema Peripheral Pulses: abnormal (Capillary refill greater than 3.5 seconds) - Abdominal General gastrointestinal: Present: soft, non-tender, non-distended, normal bowel sounds Male genitourinary: Present: normal - Integumentary Integumentary: Present: dry, clammy, decreased turgor - Musculoskeletal Musculoskeletal: generalized weakness - Psychiatric Psychiatric: no appropriate mood/affect, no intact judgment & insight, no memory intact - Neurologic Neurologic: no CNII-XII intact, focal deficits, no moves all extremities, no gait normal HEART Score - HEART Score Troponin: Troponin T 0.011 ng/mL (0.00-0.029) 07/11/21 14:45 Results - Labs CBC & Chem 7: 07/11/21 14:45 07/11/21 14:45 Labs: Abnormal lab results 07/11/21 07/11/21 07/11/21 Range/Units 14:45 14:45 15:31 WBC 13.8 H (4.5-11.0) K/mm3 RBC 2.59 L (3.65-5.03) M/mm3 Hgb 8.0 L (11.8-15.2) gm/dl Hct 25.4 L (35.5-45.6) % MCV 98 H (84-94) fl ABG pH 7.253 L (7.320-7.450) POC ABG pO2 185.2 H (83-108) mmHg ABG Hemoglobin 7.1 L (12.0-17.5) ABG Chloride 111.0 H (98-107) mmol/L ABG Glucose 48 L (65-95) mg/dL Sodium 147 H (137-145) mmol/L Potassium 6.1 H* (3.6-5.0) mmol/L Carbon Dioxide 18 L (22-30) mmol/L BUN 93 H (9-20) mg/dL Creatinine 3.0 H (0.8-1.3) mg/dL Glucose 34 L* (75-100) mg/dL Arterial Blood Glucose 48 L (65-95) mg/dL Arterial Blood Ionized Calcium 4.1 L (4.6-5.3) mg/dL Assessment and Plan - Patient Problems (1) Sepsis Current Visit: Yes Status: Acute Plan to address problem: Sepsis protocol: CBC, CMP, IV fluid resuscitation therapy, IV antibiotic therapy, serial lactic acid level, chest x-ray, maintain mean arterial pressure greater than equal 65. Prior to initiation of sepsis protocol the patient daughter elects to make patient DNR and to initiate withdrawal of care protocol and initiate comfort care measures. The high probability of a clinically significant, sudden or life threatening deterioration of the [cardiac, pulmonary, renal, ID,] system(s) required my full and direct attention, intervention and personal management. The aggregate critical care time was [90] minutes. This time is in addition to time spent performing reported procedures but includes the following: [x] Data Review and interpretation [x] Patient assessment and monitoring of vital signs [x] Documentation [x] Medication orders and management (2) Cardiac arrest Current Visit: Yes Status: Acute Plan to address problem: Patient treated in accordance with ACLS protocol with return of perfusing cardiac rhythm (3) Acute hypoxemic respiratory failure Current Visit: Yes Status: Acute Plan to address problem: Patient intubated and on ventilatory support. Patient daughter counseled regarding poor prognosis. Patient daughter elects to make patient DNR and to conduct withdrawal of care measures and initiate comfort care measures. (4) Anoxic brain injury Current Visit: Yes Status: Acute Plan to address problem: Supportive care. Patient daughter elects to make patient DNR and initiate withdrawal of care and initiate comfort care measures. (5) DVT prophylaxis Current Visit: Yes Status: Acute (6) Advance care planning Current Visit: Yes Status: Acute Plan to address problem: Disease education conducted, care plan discussed, diagnoses discussed, prognosis discussed. Patient daughterAmbreen daughter acknowledged understanding poor prognosis. Patient daughter elects to make patient DNR. Patient daughter also requests withdrawal of care and initiation of comfort care measures. +30 minutes.
[2021-07-11] MEDS ORDERED: fentaNYL DRIP Premix 2,000 MCG/100 ML BAG IV SCH (17:00)
[2021-07-11] MEDS ORDERED: HYDROmorphone 1 MG/1 ML INJ IV PRN (17:11)
[2021-07-11 18:09] VITALS: BP 49/32
--- NOTE | 2021-07-11 20:38 | Death Note ---
Note Date of : 07/11/21 Time of : 18:02 Time Pronounced: 18:25 - Preliminary Cause of (problem) (1) Sepsis Preliminary cause of (2) Cardiac arrest Preliminary cause of (3) Acute hypoxemic respiratory failure Preliminary cause of (4) Anoxic brain injury Preliminary cause of (5) DVT prophylaxis Preliminary cause of (6) Advance care planning Preliminary cause of
== END 2021-07-11 18:05 | DRG 871 ==
LOC: ED 13:40 → CC1 17:11 → ED 18:05
PROVIDERS: ADMIT Internal Medicine; ATTEND Internal Medicine
PROC: 5A1935Z Respiratory Ventilation, Less than 24 Consecutive Hours (ICD-10-PCS; principal; 2021-07-11)
PROC: 0BH17EZ Insertion of Endotracheal Airway into Trachea, Via Natural or Artificial Opening (ICD-10-PCS; 2021-07-11)
PROC: 4A033R1 Measurement of Arterial Saturation, Peripheral, Percutaneous Approach (ICD-10-PCS; 2021-07-11)
DX: A41.9 Sepsis, unspecified organism (principal); J96.01 Acute respiratory failure with hypoxia; N17.9 Acute kidney failure, unspecified; G93.1 Anoxic brain damage, not elsewhere classified; I46.9 Cardiac arrest, cause unspecified; J44.9 Chronic obstructive pulmonary disease, unspecified; Z79.82 Long term (current) use of aspirin; I10 Essential (primary) hypertension; Z87.891 Personal history of nicotine dependence; E16.2 Hypoglycemia, unspecified; R53.81 Other malaise; F01.50 Vascular dementia, unspecified severity, without behavioral disturbance, psychotic disturbance, mood disturbance, and anxiety; N40.0 Benign prostatic hyperplasia without lower urinary tract symptoms; E03.9 Hypothyroidism, unspecified; Z83.3 Family history of diabetes mellitus; Z82.49 Family history of ischemic heart disease and other diseases of the circulatory system
CPT/HCPCS: 36415; 71045; 80048; 82805; 84484; 85027; 94002; G0378; J0171; J1170; J2060; J7030; J7050